=== PATIENT | male | born 1945 | race Hispanic/Latino ===

== ENCOUNTER 2016-07-27 15:33 | Inpatient (IN) | payer MEDICARE, MEDICAID ==
[2016-07-27 15:49] VITALS: BMI 19.8
[2016-07-27] MEDS ORDERED: Sodium Chloride 0.9% 1,000 ML IV STA (16:16)
[2016-07-27 16:54] LABS: URINE BILIRUBIN NEGATIVE (NEGATIVE); URINE BLOOD NEGATIVE (NEGATIVE); URINE GLUCOSE (UA) NEGATIVE (NEGATIVE); URINE KETONE NEGATIVE (NEGATIVE); URINE LEUKOCYTE ESTERASE NEGATIVE Leu/uL (NEGATIVE); URINE PROTEIN TRACE mg/dL (<30 mg/dL)
[2016-07-27 16:56] LABS: URINE APPEARANCE CLEAR (CLEAR); URINE COLOR YELLOW (YELLOW)
[2016-07-27 16:59] LABS: ADD MANUAL DIFF? NO
[2016-07-27 17:08] LABS: BASO # 0.01 K/mm3 (0.0-2.0); BASO % 0.3 % (0.0-3.0); EOS # 0.1 (0.0-0.7); EOS % 2.3 % (1.5-5.0); GRAN # 1.73 (1.4-6.5); GRAN % 56.8 % (50.0-68.0); LYMPH # 0.7 (1.2-3.4); LYMPH % 22.6 % (22.0-35.0); MEAN CELL VOLUME 88.3 fL (80.0-105.0); MEAN CORPUSCULAR HEMOGLOBIN 29.4 pg (25.0-35.0); MEAN CORPUSCULAR HGB CONC 33.3 g/dl (31.0-37.0); MONO # 0.6 (0.1-0.6); PLATELET COUNT 167 10^3/uL (120.0-450.0); RED CELL DISTRIBUTION WIDTH 15.4 % (11.5-14.5); WHITE BLOOD COUNT 3.1 10^3/ul (4.5-11.0)
[2016-07-27 17:12] LABS: ALB/GLOB RATIO 1.1 (1.1-1.8); ALKALINE PHOSPHATASE 147 U/L (38-133); ALT/SGPT 33 U/L (7-56); AMYLASE 99 U/L (35-125); AST/SGOT 37 U/L (15-59); BILIRUBIN,TOTAL 0.7 mg/dL (0.2-1.3); BLOOD UREA NITROGEN 23 mg/dL (7-21); CALCIUM 9.1 mg/dL (8.4-10.5); CARBON DIOXIDE 30 mmol/L (21-33); CHLORIDE 102 mmol/L (98-107); GFR AFRICAN-AMERICAN > 60; GLUCOSE,RANDOM 106 mg/dL (70-110); LIPASE 281 U/L (23-300); POTASSIUM 3.8 mmol/L (3.6-5.0); SODIUM 140 mmol/L (132-148); TOTAL PROTEIN 6.5 g/dL (5.8-8.3)
[2016-07-27] MEDS ORDERED: Iohexol 350 MG/100 ML VIAL ONE (17:15)
[2016-07-27 17:16] LABS: INR 1.09 (0.93-1.08); PARTIAL THROMBOPLASTIN TIME 28.7 Seconds (23.7-30.8)
--- NOTE | 2016-07-27 17:16 | ED PDOC ---
Arrival/HPI - General Chief Complaint: Altered Mental Status Time Seen by Provider: 07/27/16 15:40 Historian: Patient, Family (daughters) - History of Present Illness Narrative History of Present Illness (Text): 07/27/16 16:00 whose past medical history includes hypertension, COPD, visually impaired, and lung cancer (received 33 radiation sessions), who is brought into the emergency department for altered mental status. Patient's daughters states the patient has been altered for about 2 weeks now. They says he been calling them says stuff like "I kidnapped someone," "I killed my roommate," "my mind is telling me to cut someone throat," and "your mom is here talking to me." Daughter notes patient has fell off the bed 2 times recently while getting out of the bed. They state the patient has been complaining of right hip pain and lower abdominal pain. Patient states he has chest pain when he coughs and he has been coughing a lot recently. He also complains of shortness of breath but denies any headache, nausea, vomiting, diarrhea, lower extremity pain/swelling, fever, or any other complaints. PMD: Dr. Rossi Manager Diversity: Dr. 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 NEWLY DX JANUARY 2016) - Integumentary Hx Dermatological Disorder: Yes Other/Comment: skin discolorations b/l arms, skin tear right arm and small scratch left arm, multiple skin discolorations ble - Musculoskeletal/Rheumatological Hx Musculoskeletal Disorders: Yes Hx Falls: Yes (FELL --16) Hx Fractures: Yes (2 SMALL FX TO RIGHT PUBIC RAMUS) - Genitourinary/Gynecological Hx Reproductive Disorders: No - Psychiatric Hx Psychophysiologic Disorder: Yes Hx Emotional Abuse: No Hx Physical Abuse: No Hx Substance Use: No - Surgical History Other/Comment: left hip replaced in 1995 and 2010 - Anesthesia Hx Anesthesia: Yes Hx Anesthesia Reactions: No Hx Malignant Hyperthermia: No - Suicidal Assessment Feels Threatened In Home Enviroment: No Family/Social History - Physician Review Nursing Documentation Reviewed: Yes Family/Social History: Unknown Family HX Smoking Status: Former Smoker Hx Alcohol Use: Yes (2 BEER A WEEK) Hx Substance Use: No Allergies/Home Meds Allergies/Adverse Reactions: Allergies No Known Allergies Allergy (Verified 07/27/16 15:48) Home Medications: Home Meds Medication Instructions Recorded Confirmed Aspirin [Ecotrin] 81 mg PO DAILY 01/15/16 07/27/16 Albuterol HFA [Ventolin HFA 90 0.09 mg IH Q46H 03/14/16 07/27/16 mcg/actuation (8 g)] Alprazolam [Xanax] 0.25 mg PO DAILY PRN 07/27/16 07/27/16 Megestrol Acetate [Megace] 400 mg PO DAILY 07/27/16 07/27/16 Metoprolol Tartrate [Lopressor] 25 mg PO BID 07/27/16 07/27/16 Zolpidem [Ambien] 5 mg PO PRN PRN 07/27/16 07/27/16 Review of Systems - Review of Systems Constitutional: absent: Fevers Respiratory: SOB Cardiovascular: Chest Pain Gastrointestinal: Abdominal Pain. absent: Diarrhea, Nausea, Vomiting Genitourinary Male: absent: Dysuria Neurological: absent: Headache, Dizziness Psychiatric: Other (visual and auditory hallucination) Physical Exam Vital Signs Reviewed: Yes Vital Signs Temp Pulse Resp BP Pulse Ox 07/27/16 19:13 102 H 21 124/77 99 07/27/16 18:32 88 20 115/64 95 07/27/16 15:50 98.2 F 86 20 104/68 95 Temperature: Afebrile Blood Pressure: Normal Pulse: Regular Respiratory Rate: Normal Appearance: Positive for: Ill-Appearing, Cachectic Mental Status: Positive for: Alert and Oriented X 3, Confused (at times) - Systems Exam Head: Present: Atraumatic, Normocephalic Pupils: Present: PERRL Extroacular Muscles: Present: EOMI Conjunctiva: Present: Normal Mouth: Present: Moist Mucous Membranes Neck: Present: Normal Range of Motion Respiratory/Chest: Present: Decreased Breath Sounds (bilaterally (right great than left)). No: Respiratory Distress, Accessory Muscle Use Cardiovascular: Present: Regular Rate and Rhythm, Normal S1, S2. No: Murmurs Abdomen: Present: Tenderness (bilateral lower quadrant), Normal Bowel Sounds. No: Distention, Peritoneal Signs, Rebound, Guarding Back: Present: Normal Inspection Upper Extremity: Present: Normal Inspection. No: Cyanosis, Edema Lower Extremity: Present: Normal Inspection. No: Edema Neurological: Present: GCS=15, CN II-XII Intact, Speech Normal Skin: Present: Warm, Dry, Normal Color. No: Rashes Psychiatric: Present: Alert, Oriented x 3, Normal Insight, Normal Concentration , Other (confused at times) Medical Decision Making ED Course and Treatment: 07/27/16 16:00 Impression: A 70 year old male with change in mental status, abdominal pain, chest pain with cough and shortness of breath. Differential Diagnosis include but are not limited to: Sepsis Plan: -- EKG -- Chest/Abdomen/Pelvis CT -- Head CT -- Chest X-ray -- Pelvis X-ray -- Labs -- Urinalysis -- Pepcid and IV Fluids -- Reassess and disposition Prior Visits: Notes and results from previous visits were reviewed. The patient last presented to the emergency department on 06/25/16 for evaluation of chest pain. Progress Notes: 07/27/16 18:[address]: Creator : Ron Wong MD COMPARISON: None available. FINDINGS: HEMORRHAGE: No intracranial hemorrhage. BRAIN: No mass effect or edema. Cortical atrophy, periventricular small vessel diseaseIncidental finding(s): Cavum septum pellucidum normal variant VENTRICLES: Unremarkable. No hydrocephalus. CALVARIUM: Unremarkable. PARANASAL SINUSES: Unremarkable as visualized. No significant inflammatory changes. MASTOID AIR CELLS: Unremarkable as visualized. No inflammatory changes. OTHER FINDINGS: None. IMPRESSION: No acute intracranial abnormalities. No significant findings to account for the clinical presentation. 07/27/16 18:40 Chest/Abdomen/Pelvis CT: Creator : Ron Wong MD COMPARISON: 01/15/2016. CT thorax. Summary of findings on the comparison examination:Left hilar adenopathy producing narrowing of the lower lobe bronchus and presumed obstructive pneumonitis primarily left lower lobe. Less pronounced changes are seen in the lingula. FINDINGS: CT CHEST WITH CONTRAST: LUNGS: Improved aeration of the left lung, residual pneumonitis and decreased tumor burden centrally left lung, bronchial segments left lung that are also better aerated related to decrease in tumor burden. New line nonspecific findings likely pneumonitis affecting the right lung. No suspicious pulmonary nodules or masses in the right lung MEDIASTINUM: Unremarkable. Normal caliber aorta and pulmonary arterial trunk. No aortic dissection. Normal size heart. LYMPH NODES: Unremarkable. PLEURA: Unremarkable. No pneumothorax. No pleural fluid. BONES: Pathologic fractures involving right lateral ribs. Posttraumatic fractures are also identified representing new findings compared to the prior study. . These are new findings compared to the prior CT. Progressive osseous metastatic disease with pathologic compression fracture L2. Pathologic fractures and lytic disease involving multiple left ribs. OTHER FINDINGS: None. CT ABDOMEN AND PELVIS: LIVER: Unremarkable. No gross lesion or ductal dilatation. GALLBLADDER AND BILE DUCTS: Unremarkable. PANCREAS: Unremarkable. No gross lesion or ductal dilatation. SPLEEN: Unremarkable. ADRENALS: Progressive enlargement left adrenal gland consistent with metastatic disease. KIDNEYS AND URETERS: Unremarkable. No hydronephrosis. No solid mass. VASCULATURE: Unremarkable. No aortic aneurysm. BOWEL: Unremarkable. No obstruction. No gross mural thickening. APPENDIX: Normal appendix. PERITONEUM: Unremarkable. No free fluid. No free air. LYMPH NODES: Unremarkable. No enlarged lymph nodes. BLADDER: Unremarkable. REPRODUCTIVE: Unremarkable. BONES: No acute fractureLytic disease in the sacrum and left iliac wing. Additional smaller lytic lesions identified in the right iliac bone. Pathologic fracture, healing associated with the right ischium. Lytic disease extends to the right pubis. OTHER FINDINGS: None. IMPRESSION: 1. Interval decrease in tumor burden left lung left mediastinum/ hilum. Improved aeration left lung with residual pneumonitis. 2. Progressive left adrenal metastatic disease. 3. Widely disseminated osseous metastatic disease affecting thoracolumbar vertebral bodies, pathologic fracture L2. Multiple pathologic rib fractures identified. 4. Lytic disease affecting pelvis including iliac bones and sacrum. 07/27/16 19:32 Patient with alt ms - etiology is unclear - patient continues to have symptoms - will need additional workup from oncology, pulmonary, neuro, and psych - will admit. Discussed with Dr. Rossi. - Lab Interpretations Lab Results: 07/27/16 16:50 07/27/16 16:50 Lab Results 07/27/16 16:50: WBC 3.1 L D, RBC 4.53, Hgb 13.3 L, Hct 40.0 L, MCV 88.3, MCH 29.4, MCHC 33.3, RDW 15.4 H, Plt Count 167, MPV 10.0, Gran % 56.8, Lymph % (Auto ) 22.6, Carver % (Auto) 18.0 H, Eos % (Auto) 2.3, Baso % (Auto) 0.3, Gran # 1.73, Lymph # 0.7 L, Carver # 0.6, Eos # 0.1, Baso # 0.01, PT 11.8, INR 1.09 H, APTT 28.7, Sodium 140, Potassium 3.8, Chloride 102, Carbon Dioxide 30, Anion Gap 12, BUN 23 H, Creatinine 0.9, Est GFR ( Amer) > 60, Est GFR (Non-Af Amer) > 60, Random Glucose 106, Calcium 9.1, Total Bilirubin 0.7, AST 37, ALT 33, Alkaline Phosphatase 147 H, Lactate Dehydrogenase 1518 H, Total Creatine Kinase 67, Troponin I < 0.01, Total Protein 6.5, Albumin 3.4, Globulin 3.0, Albumin/ Globulin Ratio 1.1, Amylase 99, Lipase 281 07/27/16 16:46: Urine Color Yellow, Urine Appearance Clear, Urine pH 6.0, Ur Specific Diana >= 1.030, Urine Protein Trace H, Urine Glucose (UA) Negative, Urine Ketones Negative, Urine Blood Negative, Urine Nitrate Negative, Urine Bilirubin Negative, Urine Urobilinogen 1.0 H, Ur Leukocyte Esterase Negative, Urine RBC 0 - 2, Urine WBC 0 - 2, Ur Epithelial Cells None, Urine Bacteria Small I have reviewed the lab results: Yes - RAD Interpretation Radiology Orders: 07/27/16 16:12 Brain [HEAD W/O CONTRAST] [CT] Stat 07/27/16 16:13 CHEST,ABD,PEL W/IV CONT ONLY [CT] Stat CHEST TWO VIEWS (PA/LAT) [RAD] Stat 07/27/16 16:14 PELVIS ONE VIEW [RAD] Stat - Medication Orders Current Medication Orders: Discontinued Medications Famotidine (Pepcid) 20 mg IVP STAT STA Stop: 07/27/16 16:16 Last Admin: 07/27/16 16:50 Dose: 20 MG IVP Administration Document 07/27/16 16:50 SZA (Rec: 07/27/16 16:59 A [id number]) Charges for Administration # of IVP Administrations 1 Sodium Chloride (Sodium Chloride 0.9%) 1,000 mls @ 500 mls/hr IV .Q2H STA Stop: 07/27/16 18:15 Last Admin: 07/27/16 16:45 Dose: 500 MLS/HR eMAR Start Stop Document 07/27/16 16:45 SZA (Rec: 07/27/16 16:59 [facility] [id number]) Intravenous Solution Start Date 07/27/16 Start Time 16:45 End Date 07/27/16 End time 18:45 Total Infusion Time 120 Iohexol (Omnipaque 350 100 Ml) Confirm Administered Dose 350 mg .ROUTE .STK-MED ONE Stop: 07/27/16 17:16 - Scribe Statement The provider has reviewed the documentation as recorded by the Sarahyibhoward Coughlin Provider Scribe Attestation: All medical record entries made by the Scribe were at my direction and personally dictated by me. I have reviewed the chart and agree that the record accurately reflects my personal performance of the history, physical exam, medical decision making, and the department course for this patient. I have also personally directed, reviewed, and agree with the discharge instructions and disposition. Disposition/Present on Arrival - Present on Arrival Any Indicators Present on Arrival: No History of DVT/PE: No History of Uncontrolled Diabetes: No Urinary Catheter: No History of Decub. Ulcer: No History Surgical Site Infection Following: Orthopedic Procedures, None - Disposition Have Diagnosis and Disposition been Completed?: Yes Diagnosis: Altered mental status Disposition: HOSPITALIZED Disposition Time: 19:30 Patient Plan: Admission Condition: FAIR
[2016-07-27 17:20] LABS: URINE BACTERIA SMALL (NEG); URINE RBC 0 - 2 /hpf (0-2); URINE WBC 0 - 2 /hpf (0-6)
[2016-07-27 17:33] LABS: TROPONIN I < 0.01 ng/mL
--- NOTE | 2016-07-27 18:20 | CT ---
PROCEDURE: CT HEAD WITHOUT CONTRAST. HISTORY: alt ms; lung ca - r/o mets COMPARISON: None available. TECHNIQUE: Axial computed tomography images were obtained through the head/brain without intravenous contrast. Radiation dose: Total exam DLP = 822.62 mGy-cm. This CT exam was performed using one or more of the following dose reduction techniques: Automated exposure control, adjustment of the mA and/or kV according to patient size, and/or use of iterative reconstruction technique. FINDINGS: HEMORRHAGE: No intracranial hemorrhage. BRAIN: No mass effect or edema. Cortical atrophy, periventricular small vessel diseaseIncidental finding(s): Cavum septum pellucidum normal variant VENTRICLES: Unremarkable. No hydrocephalus. CALVARIUM: Unremarkable. PARANASAL SINUSES: Unremarkable as visualized. No significant inflammatory changes. MASTOID AIR CELLS: Unremarkable as visualized. No inflammatory changes. OTHER FINDINGS: None. IMPRESSION: No acute intracranial abnormalities. No significant findings to account for the clinical presentation.
--- NOTE | 2016-07-27 18:36 | CT ---
PROCEDURE: CT Chest, Abdomen and Pelvis with intravenous contrast HISTORY: lung CA; cp; abd pain COMPARISON: 01/15/2016. CT thorax. Summary of findings on the comparison examination:Left hilar adenopathy producing narrowing of the lower lobe bronchus and presumed obstructive pneumonitis primarily left lower lobe. Less pronounced changes are seen in the lingula. TECHNIQUE: IV dose administered: Radiation dose: Total exam DLP = mGy-cm. This CT exam was performed using one or more of the following dose reduction techniques: Automated exposure control, adjustment of the mA and/or kV according to patient size, and/or use of iterative reconstruction technique. FINDINGS: CT CHEST WITH CONTRAST: LUNGS: Improved aeration of the left lung, residual pneumonitis and decreased tumor burden centrally left lung, bronchial segments left lung that are also better aerated related to decrease in tumor burden. New line nonspecific findings likely pneumonitis affecting the right lung. No suspicious pulmonary nodules or masses in the right lung MEDIASTINUM: Unremarkable. Normal caliber aorta and pulmonary arterial trunk. No aortic dissection. Normal size heart. LYMPH NODES: Unremarkable. PLEURA: Unremarkable. No pneumothorax. No pleural fluid. BONES: Pathologic fractures involving right lateral ribs. Posttraumatic fractures are also identified representing new findings compared to the prior study. . These are new findings compared to the prior CT. Progressive osseous metastatic disease with pathologic compression fracture L2. Pathologic fractures and lytic disease involving multiple left ribs. OTHER FINDINGS: None. CT ABDOMEN AND PELVIS: LIVER: Unremarkable. No gross lesion or ductal dilatation. GALLBLADDER AND BILE DUCTS: Unremarkable. PANCREAS: Unremarkable. No gross lesion or ductal dilatation. SPLEEN: Unremarkable. ADRENALS: Progressive enlargement left adrenal gland consistent with metastatic disease. KIDNEYS AND URETERS: Unremarkable. No hydronephrosis. No solid mass. VASCULATURE: Unremarkable. No aortic aneurysm. BOWEL: Unremarkable. No obstruction. No gross mural thickening. APPENDIX: Normal appendix. PERITONEUM: Unremarkable. No free fluid. No free air. LYMPH NODES: Unremarkable. No enlarged lymph nodes. BLADDER: Unremarkable. REPRODUCTIVE: Unremarkable. BONES: No acute fractureLytic disease in the sacrum and left iliac wing. Additional smaller lytic lesions identified in the right iliac bone. Pathologic fracture, healing associated with the right ischium. Lytic disease extends to the right pubis. OTHER FINDINGS: None. IMPRESSION: 1. Interval decrease in tumor burden left lung left mediastinum/ hilum. Improved aeration left lung with residual pneumonitis. 2. Progressive left adrenal metastatic disease. 3. Widely disseminated osseous metastatic disease affecting thoracolumbar vertebral bodies, pathologic fracture L2. Multiple pathologic rib fractures identified. 4. Lytic disease affecting pelvis including iliac bones and sacrum.
[2016-07-27] MEDS ORDERED: Albuterol HFA 90 mcg/actuation (8 g) IH SCH (22:15)
[2016-07-27] MEDS ORDERED: Albuterol 0.083% Inhal Sol (2.5 mg/3 mL) UD IH PRN (22:35)
--- NOTE | 2016-07-28 08:08 | HP ---
CHIEF COMPLAINT: Altered mental status. HISTORY OF PRESENT ILLNESS: This is a 70-year-old the patient, was getting rehab in [facility], with history of COPD, visually impaired, lung cancer with metastasis, found to have altered mental status, history of shortness of breath. Chest x-ray was done in [facility]. According to them, the patient has new infiltrates then [facility] called me. We sent the patient to Emergency Room with altered mental status and shortness of breath. The patient' s daughter states that the patient has been altered for about 2 weeks. They say that he had been calling them that kidnapped someone, "killed my roommate." "My mind is telling me to cut someone's throat," and "your mom is here talking to me." It looks like he has hallucination and has delusions. Daughter noticed the patient has fallen off the bed 2 times recently while getting out of the bed. They said the patient has been complaining of right hip pain and lower abdominal pain. The patient stated that he had chest pain when he coughs and he has been coughing a lot recently, complaining of shortness of breath. Denies fever and chills. No nausea, vomiting, or diarrhea. Complains about pain in the hip and back. PAST MEDICAL HISTORY: Hypertension, COPD, visually impaired; lung cancer, received 33 radiation sessions; asthma, history of heavy smoking; history of glaucoma; history of a fall, fracture of right pubic ramus; depression. FAMILY HISTORY: Father and mother noncontributory. HABITS: History of heavy smoking. Alcohol: 2 beers one week. Substance abuse : No. ALLERGIES: The patient is not allergic with any medications. HOME MEDICATIONS: Ecotrin, Ventolin, Xanax, Megace, Lopressor, Ambien. REVIEW OF SYSTEMS: The patient looks like getting shortness of breath, coughing , mental status changes. Complaining of back pain and hip pain, and chest pain with coughing. Having visual and auditory hallucinations. No headache, no dizziness. No dysuria. No abdominal pain. Yes to having shortness of breath. PHYSICAL EXAMINATION: VITAL SIGNS: Temperature 98.6, pulse 102, respirations 21, blood pressure 124/ 77, and pulse oximetry 99. HEENT: Normocephalic, atraumatic. Eyes: PERRLA. Extraocular muscles intact. Conjunctivae pink. Eyelids unremarkable. Nose patent. NECK: Supple. No carotid bruit, JVD, or thyromegaly. CHEST: Bilaterally symmetrical. HEART: S1, S2 positive. LUNGS: Decreased breath sounds bilaterally, right upper greater than left. Using all accessory muscles. HEART: S1, S2 positive. ABDOMEN: Soft. Bowel sounds present. No organomegaly. EXTREMITIES: No edema, no cyanosis. NEUROLOGIC: The patient is awake, alert, but getting episodes of confusion. LABORATORY DATA: White blood cells 3.1, hemoglobin 13.3, hematocrit 40.0, platelets 157. Sodium 140, potassium 3.8, BUN 23, creatinine 0.9, glucose 106. ASSESSMENT AND PLAN: The patient is a 70-year-old male with leukopenia, anemia , came with altered mental status. Did a CAT scan of the head that showed no acute intracranial abnormalities. No significant findings to account for the clinical presentation. CAT scan of the abdomen and pelvis done that showed interval decrease in the tumor burden, left lung, left mediastinum, hilum; improved aeration of the left lung with residual pneumonitis; progressive left adrenal metastatic disease, widely disseminated osseous metastatic disease affecting the thoracolumbar vertebral bodies; pathological fracture of L2, multiple pathological rib fractures; degenerative disease affecting the pelvis including the iliac bones and sacrum. Discussion done with Dr. Woods. The patient has hallucinations and delusions. Psych consult called with Dr. Valerie Koo. History of hypertension, chronic obstructive pulmonary disease, visually impaired; lung cancer, received 33 radiation sessions; history of pelvic fracture, history of anemia, history of multiple falls, history of small fracture to the right pubic ramus. The patient is admitted. Psych and pulmonary consult called. Neurologist consult called also. Gastrointestinal and deep venous thrombosis prophylaxis. Repeat labs. Continue present treatment. Will follow up. Ariela Rossi MD cc: [id number] TT: 07/28/2016 07:38:00 jose e [email or web address]
--- NOTE | 2016-07-28 09:21 | RAD ---
HISTORY: Lung cancer, chest pain. COMPARISON: 06/26/2016. Two-view chest. 01/15/2016 CT thorax TECHNIQUE: Chest PA and lateral FINDINGS: LUNGS: Improved aeration of the left lung. Left upper lobe/ perihilar mass has diminished. PLEURA: No significant pleural effusion identified. No pneumothorax apparent. CARDIOVASCULAR: Cardiomegaly. No evidence of acute, significant cardiovascular disease. OSSEOUS STRUCTURES: No significant abnormalities. VISUALIZED UPPER ABDOMEN: Normal. OTHER FINDINGS: None. IMPRESSION: Interval improvement without complete resolution left perihilar mass/ infiltrate. No new/acute findings.
[2016-07-28] MEDS: Megestrol Acetate 40 mg/ml Cup PO SCH (09:31)
[2016-07-28] MEDS: Non Formulary Medication (Budesonide/Formoterol Fumarate [Symbicort 160-4.5 Mcg Inhaler] 1 IH SCH ×2 (09:35→17:05)
--- NOTE | 2016-07-28 10:42 | RAD ---
PROCEDURE: Radiographs of the pelvis. HISTORY: fall; recent pelvis fx COMPARISON: July 27, 2016. CT abdomen and pelvis. Summary of findings on the comparison examination: Lytic disease affecting pelvis including iliac bones and sacrum. FINDINGS: BONES: Pelvic Bones: Lytic disease, pathologic fracture of the ischium better appreciated on comparative CT scan. The finding is marked on the study for review. Hips: Degenerative changes right hip. Left DAMIAN identified, there is a component of protrusio acuity/chronicity uncertain JOINTS: Sacroiliac Joints: Unremarkable. Pubic Symphysis: Unremarkable. OTHER FINDINGS: None. IMPRESSION: Nondisplaced pathologic fracture right ischium.
[2016-07-28] MEDS: HYDROmorphone 0.5 mg/0.5 ml ISec IVP PRN (16:52)
--- NOTE | 2016-07-28 18:07 | CARD ---
APPROVED REPORT EKG Measurement Heart [id number] ND [id number] <Conclusion> Normal sinus rhythm Left axis deviation Abnormal ECG
[2016-07-28] MEDS: Budesonide 0.5 mg/2 ml Inhal Susp UD IH SCH (20:11)
[2016-07-28] MEDS: Arformoterol 15 mcg/2 ml Inh Sol IH SCH (20:11)
--- NOTE | 2016-07-28 20:43 | CON ---
DATE: 07/28/2016 HISTORY OF PRESENT ILLNESS: Shortly, the patient is a 70-year-old male with multiple medic al issues including hypertension, COPD, visually impaired, lung cancer, received 33 radiation session s. Brought to the Emergency Room from [facility] where he took subacute rehab for evaluation of a ltered mental status for the past 2 weeks. In the Emergency Room, patient was saying that he kidnapp ed someone and killed his roommate and his mind was telling the patient to cut someone's throat. The patient presented to be bizarre and delusional. The patient was admitted on the medical floor statu s post fall. The patient complained of right hip pain and abdominal pain as well as coughing. He al so was complaining of shortness of breath. A psych consult was called for evaluation of delusions an d hallucinations. The patient was seen and examined today. The patient presented to be confused. T he patient said that he is in [facility]. The patient reported that he sees something on the corn er of his eye. Besides that, denied hearing voices. He reported that he had difficulty to fall asle ep. The patient is a poor and unreliable historian. Speech is impaired. The patient is stuttering and difficult to express himself. This senior grant writer is not sure what this patient's baseline is. Collater al information was obtained from the nursing staff. As per nursing staff, the patient has episodes o f confusion. The patient was saying that there is his daughter. At the same time, the patient said that he has a family, as well as daughter, as well as granddaughter who is the same age as his d aughter. This senior grant writer reviewed vital signs. Vital signs seem to be stable. Temperature 98.4, pulse is 80, blo od pressure 106/72, oxygen saturation is 91. MEDICATIONS: Reviewed. The patient is on albuterol, Norvasc, Brovana, aspirin, Lipitor, Pulmicort, Pepcid, Dilaudid, Zestril, Megace, Lopressor, budesonide, Seroquel was started at the nighttime and A mbien as needed for insomnia. LABORATORIES: WBC cells 3.1, hemoglobin 13.3, hematocrit 40. Coagulation is reviewed. Chemistry re viewed. PAST PSYCHIATRIC HISTORY: The patient denied thoughts of harming himself or others. Head CT scan wa s done with no acute intracranial abnormality. No significant findings. Chest x-ray was done; inter laura improvement without complete resolution of perihilar mass infiltrate. No acute findings. Chest, abdominal, pelvis CT scan: Tumor burden left lung and left mediastinum, left lung with residual pneumonitis, progressive left adrenal metastatic disease, widely disseminated metastat ic disease affecting thoracolumbar vertebral bodies. Pathological fracture of , multiple pathol ogical rib fractures identified. Lytic disease affecting pelvis including ilium, bones and sacrum. Pelvis x-ray was reviewed. Nondisplaced pathological fracture, right ischium. MENTAL STATUS EXAMINATION: The patient appears to be alert, was joking, intermittent eye contact. T he patient has glasses and is visually impaired. Speech was stuttering, difficulty to express himsel f. Mood described as "I am fine." Affect was labile. One minute patient was making a joke, another minute patient was crying. Mood described as okay. Thought process was coherent at the moment of t he interview, but patient has episodes of confusion and disorganized thoughts. Thought content: The patient denied thoughts of harming himself, but reported to think about . The patient reported that he sees something in the Emergency Room. The patient presented to be disorganized, was saying that he kidnapped someone and killed his roommate, which is obviously not true. The patient was sayi ng that his mind is telling him to cut someone else's throat. IMPRESSION: Most likely, patient is delirious due to medical problems. There is no metastasis to hi s brain. The patient has multiple medical issues including chronic obstructive pulmonary disease, hy pertension. The patient is visually impaired. Lung cancer status post 33 radiation sessions as well as metastatic disease. PLAN: Continue current management. This senior grant writer will initiate Seroquel 12.5 mg at the nighttime to c lear delirium. Please continue treatment. We will follow up and advise accordingly. Thank you very much for letting me participate in the care of your patient. Valerie Koo MD cc: [phone] TT: 07/28/2016 20:06:16 Confirmation # [id number] Dictation # [id number] dn
--- NOTE | 2016-07-29 03:13 | PN ---
DATE: 07/29/2016 The patient is a 70-year-old male. SUBJECTIVE: The patient is seen and examined on the bedside, complaining about shortness of breath, coughing, pain in his back and chest. No fever. No chills. No headache. No nausea, vomiting, or d iarrhea. No hematuria or hematochezia. PHYSICAL EXAMINATION: VITAL SIGNS: Temperature 98.4, pulse 80, blood pressure 106/72, respiratory rate 18. HEENT: Head normocephalic, atraumatic. Eyes, PERRLA. Extraocular muscles intact. Conjunctivae pink . Eyelids unremarkable. Nose patent. Mucous membranes moist. NECK: Supple. No carotid bruit, JVD, or thyromegaly. CHEST: Bilaterally symmetrical. HEART: S1, S2 positive. LUNGS: Clear to auscultation. ABDOMEN: Soft. Bowel sounds present. No organomegaly. EXTREMITIES: No edema. No cyanosis. NEUROLOGIC: The patient is awake, alert, moving all 4 extremities. No focal deficits. MEDICATIONS: Albuterol, Ambien, Brovana, Dilaudid, Ecotrin, Lipitor, Lopressor, Lovenox, Megace, Nor vasc, Pepcid, Pulmicort, Seroquel, Zestril. LABORATORY DATA: White blood cell 3.1, hemoglobin 13.3, hematocrit 40.0, platelets 157. Sodium 140, potassium 3.8, BUN 23, creatinine 0.9. ASSESSMENT AND PLAN: The patient is a 70-year-old male with leukopenia; anemia; proteinuria; history of nondisplaced pathological fracture, right ischium; degenerative disease of the bones; lung cancer , status post chemotherapy and radiation therapy; now he is depressed. Most likely the patient is de lirious due to medical condition, due to metastasis to his brain. He has multiple medical issues, ch ronic obstructive lung disease, hypertension. The patient is visually impaired, status post 33 radia tion sessions, as well as metastatic disease. Continue present treatment. Dr. Valerie Koo star marilynn Seroquel at nighttime to clear the delirium. Discussion done with the patient and nursing staff. The patient has history of hypertension, history of heavy smoking, glaucoma, fall, fracture of the right pubic ramus. Neurology consult called with Dr. Rodriguez, pulmonary with Dr. Mauricio. Dr. Valerie dean, the psychiatrist, saw the patient. Gastrointestinal and deep venous thrombosis prophylaxi s. We will follow up. Ariela Rossi MD cc: [id number] TT: 07/29/2016 03:12:19 Confirmation # [id number] Dictation # [id number] tn
--- NOTE | 2016-07-29 03:13 | CON ---
DATE: 07/28/2016 REFERRING PHYSICIAN: Dr. Rossi. REASON FOR CONSULT: Chronic obstructive lung disease, unresectable lung cancer. HISTORY OF PRESENT ILLNESS: This is a 70-year-old gentleman with a past medical history significant for chronic obstructive lung disease, hypertension, unresectable lung cancer, been on radiation and c hemotherapy. He was at a subacute facility, brought in to Emergency Room because of change in mental status, hallucinations and delusions. He was seen by a psychiatrist, been on opiates for pain manag ement. At the time I saw him, he was much more awake and alert. He remembered that was not feeling well and was hallucinating and having delusions. He was hearing voices to do something. Presently f eels much better. Has mild cough and shortness of breath. No nausea, no vomiting, diarrhea. No leg pain or leg swelling. PAST MEDICAL HISTORY: Chronic obstructive lung disease, unresectable lung cancer, hypertension, lega lly blind, history of fall with hip fracture, depression. SOCIAL HISTORY: Positive history of smoking, also history of alcohol use. FAMILY HISTORY: No significant cardiopulmonary disease reported. ALLERGIES: None known. MEDICATIONS: He is on albuterol-Atrovent nebulizer q. 8 hours p.r.n., Ambien 5 mg at bedtime p.r.n., Brovana 15 mcg inhaled twice a day, Dilaudid 0.25 mg q. 6 hours p.r.n., Ecotrin 81 mg daily, Lipitor 10 mg daily, metoprolol tartrate 25 mg twice a day, Megace 400 mg daily, Norvasc 10 mg daily, Pepcid 40 mg daily, Pulmicort inhaled twice a day, Seroquel 12.5 mg at bedtime and Zestril 20 mg daily. REVIEW OF SYSTEMS: At present, there is no headache, no rhinitis. Has mild cough and shortness of b reath. No chest pain, no nausea, no vomiting, diarrhea. No leg pain or leg swelling. Neurologicall y pleasant, awake, alert. LABORATORY DATA: Shows hemoglobin .3, hematocrit 40, WBC 3.1, platelet is 167. INR 1.09, PTT 2 9. Sodium 140, potassium 3.8, chloride 100, bicarbonate 30, BUN 23, creatinine 0.9, glucose 106, [place]org[place] cium 9.1, total bilirubin 0.7, AST 57, ALT 33, alkaline phosphatase is 127, LDH is 1518. Troponin le ss than 0.01. Albumin 3.4, globulin 3.0. Amylase 19 and lipase is 281. IMPRESSION AND PLAN: Chronic obstructive lung disease, unresectable lung cancer, legally blind, hype rtension, delirious, seen by psychiatry, presently feels better. Pulmonary point of view, continue b ronchodilator, keep head elevated at 45 degrees. Gastric prophylaxis. Deep venous thrombosis prophy laxis. Fall precaution. Thank you and will follow with you. Fabiola Mauricio MD cc: [id number] TT: 07/29/2016 03:13:24 Confirmation # [id number] Dictation # [id number] mn
[2016-07-29] MEDS: Budesonide 0.5 mg/2 ml Inhal Susp UD IH SCH ×2 (08:21→19:45)
[2016-07-29] MEDS: Arformoterol 15 mcg/2 ml Inh Sol IH SCH ×2 (08:21→19:45)
--- NOTE | 2016-07-29 09:36 | CP.PCM.CON ---
History of Present Illness - History of Present Illness History of Present Illness: Palliative consult requested by Dr Law Pendleton Reason: Goals of care/hospice discussion 70 year old male admitted with altered mental status, hallucinations. He complains of generalized pain, most often in right hip. CT of the head negative for new/ acute findings. CT of chest abdomen affirm left mediastinum /hilar mass , left lung pneumonitis, left adrenal metastatic disease, widely disseminated osseous metastatic disease, pathological fracture of L2 and ribs. Labs; leukopenia, mild anemia, Alk. Phos 147, LDH 1518. 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 Social History:Former heavy smoker,occasional alcohol, no drug use.Resident of [facility]. Advance Care Planning: He has an Advance Directive, a copy is on the chart. Review of Systems: Patient is confused, limited review. Currently complaining of neck pain Past Patient History - Infectious Disease Hx of Infectious Diseases: None - Past Social History Smoking Status: Former Smoker - CARDIAC Hx Hypertension: Yes - PULMONARY Hx Chronic Obstructive Pulmonary Disease (COPD): Yes - NEUROLOGICAL Hx Neurological Disorder: No - HEENT Hx Blind: Yes - HEMATOLOGICAL/ONCOLOGICAL Hx Blood Disorders: Yes Hx Cancer: Yes (lung ON RADIATION THERAPHY. NEWLY DX JANUARY 2016) - INTEGUMENTARY Hx Dermatological Problems: Yes Other/Comment: skin discolorations b/l arms, skin tear right arm and small scratch left arm, multiple skin discolorations ble - MUSCULOSKELETAL/RHEUMATOLOGICAL Hx Falls: Yes - GENITOURINARY/GYNECOLOGICAL Hx Reproductive Disorders: No - PSYCHIATRIC Hx Psychophysiologic Disorder: Yes Hx Emotional Abuse: No Hx Physical Abuse: No Hx Substance Use: No - SURGICAL HISTORY Other/Comment: left hip replaced in 1995 and 2010 - ANESTHESIA Hx Anesthesia: Yes Hx Anesthesia Reactions: No Hx Malignant Hyperthermia: No Meds Allergies/Adverse Reactions: Allergies Allergy/AdvReac Type Severity Reaction Status Date / Time No Known Allergies Allergy Verified 07/27/16 15:48 - Medications Medications: Current Medications Albuterol Sulfate (Albuterol 0.083% Inhal Yoon (2.5 Mg/3 Ml) Ud) 2.5 mg IH TIDRESP PRN PRN Reason: Shortness of Breath Amlodipine Besylate (Norvasc) 10 mg PO DAILY [facility] Last Admin: 07/28/16 09:30 Dose: 10 mg Arformoterol Tartrate (Brovana) 15 mcg IH [id number] [facility] Last Admin: 07/29/16 08:21 Dose: 15 mcg Aspirin (Ecotrin) 81 mg PO DAILY [facility] Last Admin: 07/28/16 09:31 Dose: 81 mg Atorvastatin Calcium (Lipitor) 10 mg PO DIN [facility] Last Admin: 07/28/16 16:53 Dose: 10 mg Budesonide (Pulmicort Respules) 0.5 mg IH [id number] [facility] Last Admin: 07/29/16 08:21 Dose: 0.5 mg Enoxaparin Sodium (Lovenox) 30 mg SC DAILY [facility] PRN Reason: Protocol Famotidine (Pepcid) 40 mg PO HS [facility] Last Admin: 07/28/16 21:26 Dose: 40 mg Hydromorphone HCl (Dilaudid) 0.25 mg IVP Q6H PRN PRN Reason: Pain, moderate (4-7) Last Admin: 07/28/16 16:52 Dose: 0.25 mg Lisinopril (Zestril) 20 mg PO DAILY [facility] Last Admin: 07/28/16 09:28 Dose: 20 mg Megestrol Acetate (Megace) 400 mg PO DAILY [facility] Last Admin: 07/28/16 09:31 Dose: 400 mg Metoprolol Tartrate (Lopressor) 25 mg PO BID [facility] Last Admin: 07/28/16 17:00 Dose: 25 mg Non-Formulary Medication (Budesonide/Formoterol Fumarate [Symbicort 160-4.5 Mcg Inhaler]) 1 aer IH BID [facility] Last Admin: 07/28/16 17:05 Dose: Not Given Quetiapine Fumarate (Seroquel) 12.5 mg PO [facility] PRN Reason: Protocol Last Admin: 07/28/16 21:26 Dose: 12.5 mg Zolpidem Tartrate (Ambien) 5 mg PO HS PRN; Protocol PRN Reason: Sleep Physical Exam - Constitutional Appears: Cachectic, Chronically Ill - Head Exam Head Exam: NORMAL INSPECTION - Eye Exam Eye Exam: PERRL Additional comments: slcera opaque - ENT Exam ENT Exam: Mucous Membranes Moist, Normal Oropharynx - Neck Exam Neck exam: Positive for: Normal Inspection - Respiratory Exam Respiratory Exam: Decreased Breath Sounds Additional comments: non productive cough - Cardiovascular Exam Cardiovascular Exam: REGULAR RHYTHM, +S1, +S2 - GI/Abdominal Exam GI & Abdominal Exam: Normal Bowel Sounds, Soft, Tenderness - Extremities Exam Extremities exam: Positive for: normal capillary refill - Back Exam Back exam: NORMAL INSPECTION, vertebral tenderness - Neurological Exam Neurological exam: Altered - Skin Skin Exam: Dry, Pallor Additional comments: numerous skin teas of all extremities - Additional Findings Additional findings: Palliative performance scale rating 30 % Results - Vital Signs Recent Vital Signs: Last Vital Signs Temp 98.4 F 07/28/16 16:00 Pulse 80 07/28/16 17:00 Resp 18 07/28/16 16:00 BP 106/72 07/28/16 17:00 Pulse Ox 91 L 07/28/16 16:00 - Labs Result Diagrams: 07/27/16 16:50 07/27/16 16:50 Assessment & Plan - Assessment and Plan (Free Text) Assessment: 70 year old male, resident of [facility] admitted with delirium, generalized pain, non productive cough. The patient is confused. Complains of generalized pain when moved or repositioned. Patient's daughter Ebonie and end ex at bedside. Lengthy discussion with family regarding patients medical condition and over all prognosis. Family aware that patient has widespread metastatic disease. Family considering goals of care and are focusing on comfort measures. They state they are no longer interested in having MRI of the brain done. They expressed that thy they do not want to pursue any palliative treatments. They are interested in hospice care. Hospice care explained in detail. Questions answered. Family agreeable to meeting with a business liaison manager. We also spoke about changing patients status to DNR/DNI. POA, Ebonie and patient 's in agreement. They feel that it is futile to attempt CPR and intubation, knowing that patient has very advanced lung cancer. POLST completed, a copy is on the chart. Plan: As discussed with Dr Law Rossi who is agreeable to plan, POLST: DNR/DNI Hospice evaluation. Will assist family with end of life care planning - Date & Time Date: 07/29/16 Time: 11:30
[2016-07-29] MEDS: Enoxaparin 30 mg Syringe SC SCH (09:56)
[2016-07-29] MEDS: Megestrol Acetate 40 mg/ml Cup PO SCH (09:57)
[2016-07-29] MEDS: Non Formulary Medication (Budesonide/Formoterol Fumarate [Symbicort 160-4.5 Mcg Inhaler] 1 IH SCH (09:58)
--- NOTE | 2016-07-29 10:41 | CP.PCM.CON ---
History of Present Illness - History of Present Illness History of Present Illness: Mr Wolfe is a 70 year old gentleman who is known to our department. He initially only received definitive radiation therapy for his lung cancer which he completed on April 15, 2016. He was frail, and also due to insurance related issues, he never started any systemic therapy. Since he completed radiation therapy, we saw him briefly in follow up, and had ordered a restaging PET as well as MRI of the brain, however because he was in a rehab center, the rehab center stated that a PET or MRI could not be done during his time there. Despite speaking extensively with the family about this issue, they did not make any progress regarding placement. We were informed recently by the family , they were attempting to transfer him to the hospital due to worsening mental issues that he was having. He was admitted on July 27, 2016, and was informed by his family of his admission. Since being admitted to [facility], he had a CT of the chest, abdomen and pelvis on July 27, 2016 which revealed improved aeration of the left lung with decrease in tumor burden in the left lung. He had progression of his left adrenal metastases as well as widely disseminated osseous metastases in the bone including a pathologic fracture at L2 as well as lytic lesions in the right iliac bone and lytic lesion extending to right pubic. A CT of the head without contrast does not show any obvious masses or edema. We were informed by his family today of his admission to [facility]. Review of Systems - Review of Systems Systems not reviewed;Unavailable: Altered Mental Status - Constitutional Constitutional: Weight Loss - Respiratory Respiratory: Dyspnea - Musculoskeletal Additional comments: right hip and groin pain - Neurological Neurological: Confusion Past Patient History - Infectious Disease Hx of Infectious Diseases: None - Past Social History Smoking Status: Former Smoker - CARDIAC Hx Hypertension: Yes - PULMONARY Hx Chronic Obstructive Pulmonary Disease (COPD): Yes - NEUROLOGICAL Hx Neurological Disorder: No - HEENT Hx Blind: Yes - HEMATOLOGICAL/ONCOLOGICAL Hx Blood Disorders: Yes Hx Cancer: Yes (lung ON RADIATION THERAPHY. NEWLY DX JANUARY 2016) - INTEGUMENTARY Hx Dermatological Problems: Yes Other/Comment: skin discolorations b/l arms, skin tear right arm and small scratch left arm, multiple skin discolorations ble - MUSCULOSKELETAL/RHEUMATOLOGICAL Hx Falls: Yes - GENITOURINARY/GYNECOLOGICAL Hx Reproductive Disorders: No - PSYCHIATRIC Hx Psychophysiologic Disorder: Yes Hx Emotional Abuse: No Hx Physical Abuse: No Hx Substance Use: No - SURGICAL HISTORY Other/Comment: left hip replaced in 1995 and 2010 - ANESTHESIA Hx Anesthesia: Yes Hx Anesthesia Reactions: No Hx Malignant Hyperthermia: No Meds Allergies/Adverse Reactions: Allergies Allergy/AdvReac Type Severity Reaction Status Date / Time No Known Allergies Allergy Verified 07/27/16 15:48 - Medications Medications: Current Medications Albuterol Sulfate (Albuterol 0.083% Inhal Yoon (2.5 Mg/3 Ml) Ud) 2.5 mg IH TIDRESP PRN PRN Reason: Shortness of Breath Amlodipine Besylate (Norvasc) 10 mg PO DAILY [facility] Last Admin: 07/29/16 09:57 Dose: 10 mg Arformoterol Tartrate (Brovana) 15 mcg IH [id number] [facility] Last Admin: 07/29/16 08:21 Dose: 15 mcg Aspirin (Ecotrin) 81 mg PO DAILY [facility] Last Admin: 07/29/16 09:57 Dose: 81 mg Atorvastatin Calcium (Lipitor) 10 mg PO DIN [facility] Last Admin: 07/28/16 16:53 Dose: 10 mg Budesonide (Pulmicort Respules) 0.5 mg IH [id number] [facility] Last Admin: 07/29/16 08:21 Dose: 0.5 mg Enoxaparin Sodium (Lovenox) 30 mg SC DAILY [facility] PRN Reason: Protocol Last Admin: 07/29/16 09:56 Dose: 30 mg Famotidine (Pepcid) 40 mg PO HS [facility] Last Admin: 07/28/16 21:26 Dose: 40 mg Hydromorphone HCl (Dilaudid) 0.25 mg IVP Q6H PRN PRN Reason: Pain, moderate (4-7) Last Admin: 07/28/16 16:52 Dose: 0.25 mg Lisinopril (Zestril) 20 mg PO DAILY [facility] Last Admin: 07/29/16 09:57 Dose: 20 mg Megestrol Acetate (Megace) 400 mg PO DAILY [facility] Last Admin: 07/29/16 09:57 Dose: 400 mg Metoprolol Tartrate (Lopressor) 25 mg PO BID [facility] Last Admin: 07/29/16 09:57 Dose: 25 mg Non-Formulary Medication (Budesonide/Formoterol Fumarate [Symbicort 160-4.5 Mcg Inhaler]) 1 aer IH BID [facility] Last Admin: 07/29/16 09:58 Dose: Not Given Quetiapine Fumarate (Seroquel) 12.5 mg PO HS [facility] PRN Reason: Protocol Last Admin: 07/28/16 21:26 Dose: 12.5 mg Zolpidem Tartrate (Ambien) 5 mg PO HS PRN; Protocol PRN Reason: Sleep Physical Exam - Constitutional Appears: Cachectic, Chronically Ill - Respiratory Exam Respiratory Exam: Clear to Auscultation Bilateral - Cardiovascular Exam Cardiovascular Exam: REGULAR RHYTHM - GI/Abdominal Exam GI & Abdominal Exam: Normal Bowel Sounds - Back Exam Additional comments: tenderness in the right hip and groin - Neurological Exam Neurological exam: Altered Additional comments: oriented to person and place Results - Vital Signs Recent Vital Signs: Last Vital Signs Temp 98.2 F 07/29/16 06:00 Pulse 87 07/29/16 06:00 Resp 22 07/29/16 06:00 BP 112/72 07/29/16 06:00 Pulse Ox 93 L 07/29/16 06:00 - Labs Result Diagrams: 07/27/16 16:50 07/27/16 16:50 Assessment & Plan - Assessment and Plan (Free Text) Assessment: Mr Wolfe is a 70 year old gentleman who is known to our department. He initially only received definitive radiation therapy for his lung cancer which he completed on April 15, 2016. He has progressively worsened over time, and now has widely metastatic disease. He has mental status changes. We discussed his case with Dr Marquez. We would recommend a MRI of the brain with contrast, however he is claustrophobic. Initially, we could not get the MRI here at [facility], and had to get an open MRI at [facility]. As such, we will order a CT of the head without contrast to ascertain if there are small brain lesions that could be contributing to his neurologic changes. Before we talk to the family about any possibility of palliative radiation for his pain, we would like to have a comprehensive understanding of his metastatic disease since he is at high risk of intracranial metastases.
[2016-07-29] MEDS ORDERED: Iohexol 300 100 ML IJ ONE (11:20)
--- NOTE | 2016-07-29 12:25 | CT ---
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 TECHNIQUE: Axial computed tomography images were obtained through the head/brain with intravenous contrast. Contrast dose: 100 cc of Omni 350 Radiation dose: Total exam DLP = 869 mGy-cm. This CT exam was performed using one or more of the following dose reduction techniques: Automated exposure control, adjustment of the mA and/or kV according to patient size, and/or use of iterative reconstruction technique. FINDINGS: HEMORRHAGE: No intracranial hemorrhage. BRAIN: No mass, mass effect or edema. No abnormal intracranial enhancement. No atrophy or chronic microvascular ischemic changes. VENTRICLES: Unremarkable. No hydrocephalus. CALVARIUM: Unremarkable. PARANASAL SINUSES: Unremarkable as visualized. No significant inflammatory changes. MASTOID AIR CELLS: Unremarkable as visualized. No mastoid effusion. OTHER FINDINGS: None. IMPRESSION: No evidence of metastatic disease
[2016-07-29 13:15] LABS: HEMATOCRIT 40.7 % (42.0-52.0); MEAN CELL VOLUME 86.4 fL (80.0-105.0); MEAN CORPUSCULAR HEMOGLOBIN 28.7 pg (25.0-35.0); MEAN CORPUSCULAR HGB CONC 33.2 g/dl (31.0-37.0); MEAN PLATELET VOLUME 9.8 fl (7.0-11.0)
[2016-07-29 13:17] LABS: WHITE BLOOD COUNT 2.7 10^3/ul (4.5-11.0)
[2016-07-29 13:24] LABS: ALKALINE PHOSPHATASE 154 U/L (38-133); ALT/SGPT 33 U/L (7-56); AST/SGOT 34 U/L (15-59); BILIRUBIN,TOTAL 0.5 mg/dL (0.2-1.3); BLOOD UREA NITROGEN 16 mg/dL (7-21); CARBON DIOXIDE 27 mmol/L (21-33); CHLORIDE 100 mmol/L (98-107); GFR AFRICAN-AMERICAN > 60; GLUCOSE,RANDOM 116 mg/dL (70-110); SODIUM 136 mmol/L (132-148); TOTAL PROTEIN 6.2 g/dL (5.8-8.3)
--- NOTE | 2016-07-29 15:13 | PN ---
DATE: 07/29/2016 Shortly, the patient is a 70-year-old male with multiple medical issues, lung cancer with m etastasis. Overall prognosis is very poor. The patient was admitted for altered mental status and h allucinations. Psych consult was called for the same reason. The patient was seen initially yesterd ay. The patient presented to be confused. This advertising copy writer started 12.5 mg of Seroquel. This advertising copy writer is following up the patient today. The patient appears to be groggy, mumbling something, but he said th at he feels okay. The patient also said "I need to stop hanging with people of my age" which is not related to context of the conversation which gives this advertising copy writer impression that patient is still in de lirium stage. VITAL SIGNS: This advertising copy writer reviewed vital signs. Temperature 98.2, pulse is 87, blood pressure 112/71 , respiration 22, oxygen saturation is 93. MEDICATIONS: Reviewed. Ambien as needed 5 mg, Seroquel 25 mg will be increased today. The patient is on Dilaudid, fentanyl, Pepcid, Norvasc, Brovana, aspirin, Lipitor, Pulmicort, Lovenox. LABORATORY DATA: Reviewed. Most recent was from today, WBC cells 2.7, hemoglobin 13.5, hematocrit o f 40.7. Coagulation reviewed. Chemistry reviewed. Urinalysis reviewed. Reports reviewed. The patient was seen by palliative care, Miss Yin Vin. His case was discu ssed with Dr. Rossi yesterday in detail. MENTAL STATUS EXAMINATION: As this advertising copy writer described above, patient appears to be confused, sleepy, w as talking to this advertising copy writer with eyes closed. Majority of the statements were not related to the quest ions being asked. The patient reported to feel good. Affect was flat. Thought process is disorgani zed, confused. The patient denied thoughts of harming himself or others. The patient is obviously p sychotic which could be related to delirium stage. Insight and judgment limited. Impulses are well controlled. IMPRESSION: The patient is in acute delirium which is related to the medical issues including lung c ancer with multiple metastases, widely dissimilated metastatic disease. Please see medical team note s for more detailed information. PLAN: Continue current management for psychosis and for good night's sleep, the patient could have S eroquel 25 mg at the nighttime. The patient now is DNR and DNI. Continue pain medication, comfort m easures as well as anxiolytics in case of anxiety. There is nothing much this advertising copy writer could offer in order to help the patient. Please reconsult as needed. Thank you very much for letting me participate in care of your patient. This advertising copy writer will sign off. Valerie Koo MD cc: [id number] TT: 07/29/2016 15:12:38 Confirmation # [id number] Dictation # [id number] tn
--- NOTE | 2016-07-29 17:07 | CON ---
DATE: 07/29/2016 The patient is currently in room 360. REASON FOR CONSULTATION: This patient is well known to us, has a diagnosis of small cell lung carcin symone who has received just definitive radiation to the lung, could not get chemotherapy because of jose ious comorbid issues. Was supposed to have a PET scan set up as an outpatient, ended up being readmi tted to the hospital with a fracture of the pubis after a fall, had at lengthy stay in the rehab and was too frail to get any other treatments and is now again readmitted to [facility]. Sin ce he completed the radiation therapy, we had ordered a restaging PET as well as an MRI; however, bec ause he was in the rehabilitation center, these tests could not be done. It is unclear if the patien missy was transferred to the hospital due to worsening mental issues that he was having in the rehabilita tion. He was admitted to [facility] on 07/27/2016. Since admission to the hospital, a CAT scan of the chest, abdomen and pelvis, which showed improved aeration of the lung where he had the r adiation with decreased tumor burden; however, was noted to have progression of his adrenal metastasi s as well as now widely disseminated osseous metastases including the bone, including pathologic frac ture of L2, lytic lesion in the right iliac wing, lytic lesion extending into the right pubis. CAT s can of the head without contrast did not show any masses and since then he had a CAT scan of the head with contrast, which appears to show any metastatic disease. REVIEW OF SYSTEMS: The patient has altered mental status, so detailed information could not be glean ed from the chart. The patient has had progressive weight loss. He is short of breath. ____ short of breath. The patient has skin discoloration of both arms with skin tear, right arm, small scratch left arm with multiple skin discolorations in both lower extremities. PAST MEDICAL HISTORY: Significant for no reactions to anesthesia. No history of malignant hyperther hilton. MEDICATIONS: Reviewed. He is on albuterol 0.83% solution, 2.5 mg ____ t.i.d., amlodipine 10 mg p.o. daily, Brovana 15 mcg inhaled q. 12 hours, aspirin 81 mg daily, Lipitor 10 mg p.o. daily, ____ Pulmi bryn 0.5 mg inhaled q. 12 hours, Lovenox 30 mg subQ daily, Pepcid 40 mg p.o. daily, Dilaudid 0.25 mg IV q. 6 hours p.r.n., lisinopril 20 mg p.o. daily, Megace 400 mg p.o. daily, Lopressor 25 mg b.i.d., Seroquel 12.5 mg p.o. at bedtime, Ambien 5 mg p.o. at bedtime p.r.n. for sleep. PHYSICAL EXAMINATION: EXTREMITIES: The patient looks cachectic, chronically ill. Temporal muscle wasting noted. HEENT: Head is normocephalic, atraumatic. The patient is visually impaired. No oropharyngeal lesio ns are noted on examination of the oropharynx. NECK: Supple. There is no adenopathy. No jugular venous distention noted. LUNGS: Relatively clear to percussion and auscultation. HEART: Reveals S1 and S2 normal. No gallop or murmur is heard. BACK: Reveals tenderness to the right hip and groin. ABDOMEN: Soft, nontender. Bowel sounds are present. There is no rebound, rigidity or guarding. EXTREMITIES: Reveals no cyanosis, clubbing or edema. NEUROLOGIC: Higher functions are normal. No focal deficits are noted. VITAL SIGNS: Today revealed a T-max of 98.4, pulse 87 ____ respirations 22, blood pressure is 112/72 , pulse ox is 93% on room air. LABORATORY DATA: Reviewed. White count is 3.1, hemoglobin 13.3, hematocrit 40, platelet count 167,0 00. Sodium is 140, K is 3.8, chloride is 102, CO2 is 30. BUN is 23 with a creatinine of 0.9. Blood sugar of 106. 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 Confusion, etiology of which is unclear. Could be paraneoplas tic, could be metastatic which is why we requested a CT with contrast. The patient cannot go for an MRI because he is claustrophobic. A long talk with ____the sales account coordinator. My feeling is that at this point in time with the patient having extensive small cell lung carcinoma, in the background of this, patient is also having progressive confusion, disorientation. It might be prudent to just k eep him comfortable without making any active intervention. As far as the symptoms the patient is caputo ving, could be related to paraneoplastic phenomena that could account for the confusion and progressi ve neurologic deterioration. Will talk to the family and make appropriate recommendations as well. Gracie Marquez MD cc: [id number] TT: 07/29/2016 17:07:10 Confirmation # [id number] Dictation # [id number] rn
--- NOTE | 2016-07-29 17:17 | PN ---
DATE: 07/29/2016 SUBJECTIVE: The patient was seen and examined on the bedside. The patient is confused, complaining of generalized pain when moved or repositioned. No fever , no chills, no nausea, vomiting, or diarrhea. No hematuria or hematochezia. No headache, no dizziness. No nausea, vomiting, or diarrhea. PHYSICAL EXAMINATION: VITAL SIGNS: Temperature 98.2, pulse 57, blood pressure 112/72, respiratory rate 20. HEENT: Head normocephalic, atraumatic. Eyes, PERRLA. Extraocular muscles intact. Conjunctivae pink. Eyelids unremarkable. Nose patent. NECK: Supple. No carotid bruit, JVD or thyromegaly. CHEST: Bilaterally symmetrical. HEART: S1, S2 positive. LUNGS: Clear to auscultation. ABDOMEN: Soft. Bowel sounds present. No organomegaly. EXTREMITIES: No edema, no cyanosis. NEUROLOGIC: The patient is awake, alert and moving all 4 extremities. No focal deficits. MEDICATIONS: Albuterol, Ambien, Brovana, Symbicort, Dilaudid, Duragesic patch added today for pain, Ecotrin, Lipitor, metoprolol, Lovenox, megestrol, amlodipine, Pepcid, Pulmicort, Seroquel, lisinopril. LABORATORY DATA: White blood cells 2.7, hemoglobin 13.5, hematocrit 40.7, platelets 172. Sodium 136, potassium 4.0, BUN 15, creatinine 0.8, glucose 116. ASSESSMENT AND PLAN: The patient is a 70-year-old male with leukopenia, anemia , hyperglycemia, proteinuria. Went for CAT scan of the head, reviewed by me. Because the patient was in constant pain, we added a fentanyl patch, 20 mcg transdermal patch. Continue Dilaudid 0.25 mg IV for breakthrough pain. The patient was seen by Annamaria Banuelos. The patient had altered mental status with hallucination, generalized body pain, history of left lung pneumonitis, left adrenal metastatic disease, widely disseminated osseous metastatic disease , pathological fracture of L2 and a couple of ribs, leukopenia, chronic obstructive pulmonary disease, hypertension, visually impaired, glaucoma, macular degeneration, deconditioning, fracture of pubic ramus, left hip replacement, frequent falls, history of heavy smoking. Annamaria Banuelos talked to patient's daughter, Ebonie, and his ex-. Medical condition was discussed and overall prognosis was discussed. Family is interested to make the patient hospice, DNR and DNI. We will continue comfort care. Gastrointestinal and deep venous thrombosis prophylaxis. Repeat labs. We will follow up. Ariela Rossi MD cc: [id number] TT: 07/29/2016 17:17:14 Confirmation # [id number] Dictation # [id number] berny DOMINGUEZ
--- NOTE | 2016-07-29 19:18 | CON ---
DATE: 07/29/2016 CHIEF COMPLAINT: Altered mental status, confusion. HISTORY OF PRESENT ILLNESS: This is a 70-year-old man with documented small cell carcinoma of the jason ng, now extensive metastasis. He has adrenal metastasis and disseminated to osseous metastatic with pathological L2 lytic lesion in the right iliac wing and lesion extending into the right pubis, who p resents with altered mental status, was having hallucinations and generalized weakness; therefore was consulted. Currently, he is still mildly confused. Currently his electrolytes are getting stabiliz ed. Palliative care has seen the patient and recommends comfort care. He is on Dilaudid, fentanyl f or comfort, for pain control. He is on aspirin and statin for stroke prevention. His CT head showed no acute intracranial abnormalities, no evidence of metastatic disease. Oncology is on board. REVIEW OF SYSTEMS: A 14-point review of systems is negative except for the HPI. ALLERGIES: No known drug allergies. PAST MEDICAL HISTORY: History of leukopenia, anemia, hyperglycemia, history of chronic obstructive p ulmonary disease, hypertension, macular degeneration, deconditioned, fracture of the left hip r eplacement, history of heavy smoking, history of small cell carcinoma of the lung with adrenal mass a nd disseminated osseous metastatic disease with pathological fracture of L2 and a couple of his ribs. MEDICATIONS: Reviewed via nurse's reconciliation sheet. SOCIAL HISTORY: Former smoker. No illicit drug use or ETOH abuse. ALLERGIES: No known drug allergies. FAMILY HISTORY: Noncontributory. PHYSICAL EXAMINATION: VITAL SIGNS: Temperature 98.2, pulse rate 87, blood pressure 112/72, respiratory rate 22, oxygen sat uration 93% on room air. GENERAL: The patient is lying in bed in no acute distress. HEENT: Atraumatic, normocephalic. PERRLA. Extraocular muscles intact. NECK: Supple, no JVD, no adenopathy noted. LUNGS: Clear to auscultation. No adventitious sounds. HEART: S1, S2, normal rate and rhythm. No murmurs, rubs, or gallops. ABDOMEN: Soft, nontender, nondistended. Bowel sounds are present. EXTREMITIES: No clubbing, no cyanosis. Peripheral pulses 2+ felt bilaterally. BACK: Reveals tenderness to the right hip and groin. NEUROLOGIC: The patient is alert, oriented to person and place. Recall after 5 minutes is 0/3. Poo r attention span, slow thought process. Cranial nerves II through XII are intact. MOTOR: Is very cachectic looking, moves all extremities. SENSORY: Decreased light touch and pinprick up to the calves bilaterally, decreased vibration of the toes. DTRs are 1+ and absent at the ankles. COORDINATION AND GAIT: Deferred for now. LABORATORY DATA: WBC 2.7, hemoglobin of 13.5, hematocrit 40.7, random glucose of 172. Sodium is 136 , potassium 4, chloride 100, carbon dioxide 27, BUN of 16, creatinine 0.8. Random glucose of 116. 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 At this time, his altered mental status likely is secondary to deliriu m due to his underlying medical conditions. There is an aspect that this could be a component of a p araneoplastic disease, but doing further workup and acute management and acute intervention might be very prudent and I feel like we should keep him comfortable. At this time, recommend just mild physi georgiana therapy, keep him comfortable with the current doses of opiates and continue with oncology follow up. No further neurological aggressive intervention is required, and maintain his electrolytes and k eep him hydrated. Thank you for this consult. No further neurological workup needed at this time. Chris Rodriguez MD cc: [id number] TT: 07/29/2016 19:17:39 Confirmation # [id number] Dictation # [id number] berny
--- NOTE | 2016-07-29 21:27 | PN ---
DATE: 07/29/2016 REFERRING PHYSICIAN: Dr. Rossi. SUBJECTIVE: He is lying in the bed, head at 45 degrees, sleepy, arousable, mild cough. No shortness of breath, no chest pain, no nausea, no vomiting, diarrhea. No leg pain or leg swelling. OBJECTIVE: GENERAL: No acute distress. VITAL SIGNS: Temperature is 98, heart rate is 87, respiratory rate is 20, blood pressure 112/72, pul se ox 93% on room air. HEENT: Moist mucous membrane. No ulcer or oral thrush noted. NECK: Supple. No JVD. LUNGS: Has a fair airflow with few rhonchi. HEART: S1, S2. ABDOMEN: Soft, nontender. No organomegaly. EXTREMITIES: There is no edema. NEUROLOGIC: Sleepy, arousable, follows simple command. MEDICATIONS: He is on albuterol-Atrovent nebulizer q. 8 hours p.r.n., Ambien 5 mg at bedtime p.r.n. , Brovana 15 mcg inhaled twice a day, Dilaudid 0.25 mg IV q. 6 hours p.r.n., Duragesic patch q. 72 ho urs, Ecotrin 81 mg daily, Lipitor 10 mg daily, metoprolol tartrate 25 mg twice a day, Lovenox 30 mg s ubQ daily, Megace 400 mg daily, Norvasc 10 mg daily, Pepcid 40 mg daily, Pulmicort inhaled twice a da y, Seroquel 25 mg at bedtime and Zestril 20 mg daily. LABORATORY DATA: Shows hemoglobin 13.5, hematocrit 40.7, WBC 2.7, platelet is 172. Sodium 136, pota ssium 4.0, chloride 100, bicarbonate 27, BUN 16, creatinine 0.8, glucose 116, calcium 9.0, AST 34, AL T 33, alkaline phosphatase is 154, albumin is 3.2. CAT scan of the head was done today, which shows no infiltrate or effusion. IMPRESSION AND PLAN: Chronic obstructive lung disease, unresectable lung cancer, legally blind, hype rtension, admitted with delusion was delirious. Pulmonary Point Of View: It is okay. Continue p.o. and inhaled bronchodilator. Keep head at 45 deg ree, seen by psychiatrist also followed by oncology. Continue gastric prophylaxis, deep venous throm bosis prophylaxis. Aspiration precaution. Thank you and we will follow with you. Fabiola Mauricio MD cc: [id number] TT: 07/29/2016 21:26:46 Confirmation # [id number] Dictation # [id number] ln
[2016-07-30] MEDS: Arformoterol 15 mcg/2 ml Inh Sol IH SCH ×2 (07:15→21:00)
[2016-07-30] MEDS: Budesonide 0.5 mg/2 ml Inhal Susp UD IH SCH ×2 (07:15→21:00)
[2016-07-30] MEDS: Megestrol Acetate 40 mg/ml Cup PO SCH (09:00)
[2016-07-30] MEDS: Non Formulary Medication (Budesonide/Formoterol Fumarate [Symbicort 160-4.5 Mcg Inhaler] 1 IH SCH (09:05)
[2016-07-30] MEDS: Enoxaparin 30 mg Syringe SC SCH ×2 (09:05→09:11)
--- NOTE | 2016-07-30 18:10 | PN ---
DATE: 07/30/2016 REFERRING PHYSICIAN: Dr. Rossi. SUBJECTIVE: He is lying in the bed, sleepy, arousable. No significant cough or shortness of breath. Still has some abdominal discomfort. No nausea, no dysuria. No leg pain or leg swelling. OBJECTIVE: GENERAL: No acute distress. VITAL SIGNS: Temp is 98, heart rate is 79, respiratory rate is 20, blood pressure 95/61, pulse ox 98 % on nasal cannula. HEENT: Moist mucous membranes. No ulcer or oral thrush noted. NECK: Supple. No JVD. LUNGS: Have a prolonged expiratory phase. Has some rhonchi. HEART: S1, S2. ABDOMEN: Mild epigastric area tenderness. EXTREMITIES: There is no edema. NEUROLOGIC: He is sleepy, arousable, follows simple command. MEDICATIONS: He is on albuterol-Atrovent nebulizer q. 8 hours p.r.n., Ambien 5 mg at bedtime p.r.n., Brovana 15 mcg inhaled twice a day, Dilaudid 0.25 mg q. 6 hours p.r.n., Duragesic patch q. 72 hours , Ecotrin 81 mg daily, Lipitor 10 mg daily, metoprolol tartrate 25 mg twice a day, Lovenox 30 mg supriya y, Megace 400 mg daily, Norvasc 10 mg daily, Pepcid 40 mg at bedtime, Pulmicort inhaler twice a day, Pravachol 25 mg at bedtime, Zestril 20 mg daily. LABORATORY DATA: Reviewed. No new lab is available since yesterday. Also, a CT of the abdomen and pelvis on admission, which was unremarkable for abdominal finding except a progressive left adrenal m etastatic disease. There is also widely disseminated osseous metastatic disease affecting thoracolu mbar vertebral bodies, pathological fracture at L2. There are also multiple pathological rib fractur es. Also, lytic lesion affecting pelvis, including iliac component. IMPRESSION AND PLAN: Metastatic lung cancer involving rib, vertebra, ilium, chronic obstructive lung disease, hypertension. Pulmonary point of view, he is doing well. Continue bronchodilator. Keep h ead 45 degrees. He is to manage his pain. He is DNR. Continue supportive care. Thank you, and will follow with you. Fabiola Mauricio MD cc: [id number] TT: 07/30/2016 18:09:40 Confirmation # [id number] Dictation # [id number] dn
--- NOTE | 2016-07-30 20:16 | PN ---
DATE: 07/30/2016 SUBJECTIVE: The patient was seen and examined on the bedside. Nurse was feeding breakfast. Looks comfortable. He looks a little bit confused. No nausea, vomiting, or diarrhea. No dysuria. No swelling of the extremities. No shortness of breath. No fever, no chills, no dyspnea. PHYSICAL EXAMINATION: VITAL SIGNS: Temperature 98, heart rate 79, respiratory rate 20, blood pressure 95/61, and pulse oximetry 98% on nasal cannula. HEENT: Head normocephalic, atraumatic. Eyes, PERRLA. Extraocular muscles intact. Conjunctivae are clear. Nose patent. NECK: Supple. No carotid bruit, JVD or thyromegaly. LUNGS: Have prolonged expiratory phase. Has some rhonchi. HEART: S1, S2 positive. ABDOMEN: Mild epigastric area tenderness. EXTREMITIES: No edema, no cyanosis. NEUROLOGIC: The patient is awake, alert, moving all 4 extremities, but getting episodes of confusion. MEDICATIONS: Albuterol, Ambien, Brovana, Dilaudid, Duragesic patch, Ecotrin, Lipitor, metoprolol, Lovenox, Megace, Norvasc, Pepcid, Pulmicort, Prevacid, Zestril. LABORATORY DATA: We do not have labs today, but I reviewed old labs. ASSESSMENT AND PLAN: The patient is a 70-year-old male with metastatic lung cancer involving the ribs, vertebrae, ilium, adrenal gland, chronic obstructive lung disease, hypertension. The patient is now DNR and DNI. Length of time discussion done with the patient's family and nurse. CAT scan of the abdomen and pelvis showed progressive left adrenal metastatic disease and widely disseminated osseous metastatic disease affecting the thoracolumbar vertebral bodies, pathological fracture at L2, multiple pathologic rib fractures, also lytic lesions affecting pelvic including iliac components, so patient is getting Duragesic patch for pain management. Seen by Dr. Mauricio, seen by Dr. Chris Rodriguez. The patient has actually small cell carcinoma of the lung, status post chemotherapy and radiation therapy, getting sometime episodes of altered mental status, history of heavy smoking, hypertension, visually impaired , glaucoma, macular degeneration and deconditioning. this could be a component of paraneoplastic disease, but doing further workup, and acute management and acute intervention might be very prudent and feel like we should keep him comfortable. That will be a family decision. I had discussion done with patient's daughter, Ebonie, phone number [phone]. She knows that her father is terminal, making him palliative care with hospice. Hospice team is working on that. As soon as paperwork is done, we will transfer the patient to [facility] for comfort care. Ariela Rossi MD cc: [id number] TT: 07/30/2016 20:15:45 Confirmation # [id number] Dictation # [id number] berny DOMINGUEZ
--- NOTE | 2016-07-31 03:51 | CP.PCM.PN ---
Subjective - Date & Time of Evaluation Date of Evaluation: 07/31/16 Time of Evaluation: 03:48 - Subjective Subjective: Patient was seen at bedside. Has been talking on phone,trying to call family members, is suspicious, hallucinating,wants to get out of bed. Agreed to swallow a pill to calm him down if I stayed there until nurse brings him his medication. I ordered xanax 0.25 mg po stat. Medical record was reviewed. This 70 year old white male was admitted with sob, altered mental status. He has PMH of lung cancer with mets, COPD, HTN,asthma, smoker, visually impaired, depression, glaucoma , fall history. Objective - Vital Signs/Intake and Output Vital Signs (last 24 hours): Temp Pulse Resp BP Pulse Ox 98.9 F 80 20 94/57 L 92 L 07/30/16 17:32 07/30/16 21:25 07/30/16 17:32 07/30/16 21:25 07/30/16 21:25 - Medications Medications: Current Medications Albuterol Sulfate (Albuterol 0.083% Inhal Yoon (2.5 Mg/3 Ml) Ud) 2.5 mg IH TIDRESP PRN PRN Reason: Shortness of Breath Amlodipine Besylate (Norvasc) 10 mg PO DAILY [facility] Last Admin: 07/30/16 09:01 Dose: 10 mg Arformoterol Tartrate (Brovana) 15 mcg IH [id number] [facility] Last Admin: 07/30/16 21:00 Dose: Not Given Aspirin (Ecotrin) 81 mg PO DAILY [facility] Last Admin: 07/30/16 09:05 Dose: 81 mg Atorvastatin Calcium (Lipitor) 10 mg PO DIN [facility] Last Admin: 07/30/16 17:39 Dose: 10 mg Budesonide (Pulmicort Respules) 0.5 mg IH [id number] [facility] Last Admin: 07/30/16 21:00 Dose: Not Given Enoxaparin Sodium (Lovenox) 30 mg SC DAILY [facility] PRN Reason: Protocol Last Admin: 07/30/16 09:11 Dose: Not Given Famotidine (Pepcid) 40 mg PO HS [facility] Last Admin: 07/30/16 21:11 Dose: 40 mg Fentanyl (Duragesic) 1 patch TD Q72H [facility] Last Admin: 07/29/16 13:29 Dose: 1 patch Hydromorphone HCl (Dilaudid) 0.25 mg IVP Q6H PRN PRN Reason: Pain, moderate (4-7) Last Admin: 07/28/16 16:52 Dose: 0.25 mg Lisinopril (Zestril) 20 mg PO DAILY [facility] Last Admin: 07/30/16 09:00 Dose: 20 mg Megestrol Acetate (Megace) 400 mg PO DAILY [facility] Last Admin: 07/30/16 09:00 Dose: 400 mg Metoprolol Tartrate (Lopressor) 25 mg PO BID [facility] Last Admin: 07/30/16 17:21 Dose: Not Given Non-Formulary Medication (Budesonide/Formoterol Fumarate [Symbicort 160-4.5 Mcg Inhaler]) 1 aer IH BID [facility] Last Admin: 07/30/16 09:05 Dose: Not Given Quetiapine Fumarate (Seroquel) 25 mg PO HS [facility] PRN Reason: Protocol Last Admin: 07/30/16 21:11 Dose: 25 mg Zolpidem Tartrate (Ambien) 5 mg PO HS PRN; Protocol PRN Reason: Sleep - Labs Labs: 07/29/16 13:08 07/29/16 13:08 PT 11.8 Seconds (9.9-11.8) 07/27/16 16:50 INR 1.09 (0.93-1.08) H 07/27/16 16:50 APTT 28.7 Seconds (23.7-30.8) 07/27/16 16:50 - Constitutional Appears: Well, No Acute Distress - Head Exam Head Exam: ATRAUMATIC, NORMAL INSPECTION, NORMOCEPHALIC - Eye Exam Additional comments: Visually impaired. - ENT Exam ENT Exam: Normal External Ear Exam - Neck Exam Neck Exam: Normal Inspection - Respiratory Exam Respiratory Exam: NORMAL BREATHING PATTERN - Cardiovascular Exam Cardiovascular Exam: absent: JVD - GI/Abdominal Exam GI & Abdominal Exam: absent: Distended - Rectal Exam Rectal Exam: Deferred - Extremities Exam Extremities Exam: Normal Inspection - Back Exam Back Exam: NORMAL INSPECTION - Neurological Exam Neurological Exam: Altered - Psychiatric Exam Psychiatric exam: Anxious - Skin Skin Exam: Normal Color Assessment and Plan - Assessment and Plan (Free Text) Assessment: A/P:Anxious. Altered mental status. Asthma/COPD. HTN. Xanax 0.25 mg PO STAT.
[2016-07-31] MEDS: Arformoterol 15 mcg/2 ml Inh Sol IH SCH ×2 (09:02→19:33)
[2016-07-31] MEDS: Budesonide 0.5 mg/2 ml Inhal Susp UD IH SCH ×2 (09:02→19:33)
[2016-07-31] MEDS: Enoxaparin 30 mg Syringe SC SCH ×2 (10:54→11:13)
[2016-07-31] MEDS: Megestrol Acetate 40 mg/ml Cup PO SCH (10:55)
[2016-07-31] MEDS ORDERED: Lidocaine 5% Patch TD STA (12:17)
--- NOTE | 2016-07-31 14:06 | CP.PCM.PN ---
Subjective - Date & Time of Evaluation Date of Evaluation: 07/30/16 Time of Evaluation: 14:00 - Subjective Subjective: Patient denies any acute pain and feels comfortable. Oriented to self but at time not to place or time. Objective - Vital Signs/Intake and Output Vital Signs (last 24 hours): Temp Pulse Resp BP Pulse Ox 98 F 98 H 20 110/70 95 07/31/16 09:35 07/31/16 11:01 07/31/16 09:35 07/31/16 11:01 07/31/16 09:35 Intake and Output: 07/31/16 07/31/16 06:59 18:59 Intake Total 120 Output Total 100 Balance 20 - Medications Medications: Current Medications Albuterol Sulfate (Albuterol 0.083% Inhal Yoon (2.5 Mg/3 Ml) Ud) 2.5 mg IH TIDRESP PRN PRN Reason: Shortness of Breath Amlodipine Besylate (Norvasc) 10 mg PO DAILY [facility] Last Admin: 07/31/16 10:55 Dose: 10 mg Arformoterol Tartrate (Brovana) 15 mcg IH [id number] [facility] Last Admin: 07/31/16 09:02 Dose: 15 mcg Aspirin (Ecotrin) 81 mg PO DAILY [facility] Last Admin: 07/31/16 10:55 Dose: 81 mg Atorvastatin Calcium (Lipitor) 10 mg PO DIN [facility] Last Admin: 07/30/16 17:39 Dose: 10 mg Budesonide (Pulmicort Respules) 0.5 mg IH [id number] [facility] Last Admin: 07/31/16 09:02 Dose: 0.5 mg Enoxaparin Sodium (Lovenox) 30 mg SC DAILY [facility] PRN Reason: Protocol Last Admin: 07/31/16 11:13 Dose: Not Given Famotidine (Pepcid) 40 mg PO HS [facility] Last Admin: 07/30/16 21:11 Dose: 40 mg Fentanyl (Duragesic) 1 patch TD Q72H [facility] Last Admin: 07/29/16 13:29 Dose: 1 patch Hydromorphone HCl (Dilaudid) 0.25 mg IVP Q6H PRN PRN Reason: Pain, moderate (4-7) Last Admin: 07/28/16 16:52 Dose: 0.25 mg Lidocaine (Lidoderm) 1 ea TD DAILY [facility] Lisinopril (Zestril) 20 mg PO DAILY [facility] Last Admin: 07/31/16 11:01 Dose: Not Given Megestrol Acetate (Megace) 400 mg PO DAILY [facility] Last Admin: 07/31/16 10:55 Dose: 400 mg Metoprolol Tartrate (Lopressor) 25 mg PO BID [facility] Last Admin: 07/31/16 10:53 Dose: 25 mg Non-Formulary Medication (Budesonide/Formoterol Fumarate [Symbicort 160-4.5 Mcg Inhaler]) 1 aer IH BID [facility] Last Admin: 07/30/16 09:05 Dose: Not Given Quetiapine Fumarate (Seroquel) 25 mg PO HS [facility] PRN Reason: Protocol Last Admin: 07/30/16 21:11 Dose: 25 mg Zolpidem Tartrate (Ambien) 5 mg PO HS PRN; Protocol PRN Reason: Sleep - Labs Labs: 07/29/16 13:08 07/29/16 13:08 PT 11.8 Seconds (9.9-11.8) 07/27/16 16:50 INR 1.09 (0.93-1.08) H 07/27/16 16:50 APTT 28.7 Seconds (23.7-30.8) 07/27/16 16:50 - Constitutional Appears: Non-toxic, Cachectic - Head Exam Head Exam: ATRAUMATIC - Eye Exam Eye Exam: absent: Scleral icterus Assessment and Plan - Assessment and Plan (Free Text) Assessment: Mr. Wolfe katelin 70 y/o man with extensive stage small cell lung cancer with AMS in the setting of possible paraneoplastic setting (limbic enceophalopathy?). At present patient is comfortable and patient's family will be pursuing consideration of hospice and all measures at this point should be for palliative purposes. Mati Marquez MD Oncology Serice p: [phone]
--- NOTE | 2016-07-31 17:05 | PN ---
DATE: 07/31/2016 REFERRING PHYSICIAN: Dr. Rossi SUBJECTIVE: He is lying in the bed. Family friend at bedside feeding him lunch. Night was unremarka ble. No shortness of breath. No chest pain, no nausea and vomiting, diarrhea. Has some shoulder di scomfort. No leg pain or leg swelling. OBJECTIVE: GENERAL: No acute distress. VITAL SIGNS: Temp is 98, heart rate is 98, respiratory rate is 20, blood pressure 110/70, pulse ox 9 5% with 2 liters nasal cannula. HEENT: Moist mucous membranes. . NECK: Supple. No JVD. LUNGS: Fair airflow. HEART: S1, S2. ABDOMEN: Soft, nontender. No organomegaly. EXTREMITIES: There is no edema. NEUROLOGIC: Awake, alert, follows simple commands. MEDICATIONS: He is on albuterol/Atrovent nebulizer q. 8 hours, Ambien 5 mg at bedtime p.r.n., Brovan a 15 mcg inhaled twice a day, Dilaudid 0.25 mg IV q. 6 hours p.r.n., Duragesic patch q. 72 hours, Eco merly 81 mg daily, Lidoderm patch daily, Lipitor 10 mg daily, metoprolol tartrate 25 mg twice a day, L ovenox 30 mg subQ daily, Megace 400 mg daily, Norvasc 10 mg daily, Pepcid 40 mg at bedtime, Pulmicort inhaled twice a day, Seroquel 25 mg at bedtime and Zestril 20 mg daily. LABORATORY DATA: Shows hemoglobin 15.5, hematocrit 40.7, WBC 2.7, platelet is 172. Sodium 136, pota ssium 4.0. IMPRESSION AND PLAN: Metastatic lung cancer involving the ribs, vertebra, ileum. Chronic obstructive lung disease, hypertension. Pulmonary point of view, seems okay. Continue supplemental oxygen, bro nchodilators. Pain management. Gastric prophylaxis. Deep venous thrombosis prophylaxis. I spoke t o nursing staff to get him out of bed to chair with fall precautions. Thank you and we will follow with you. Fabiola Mauricio MD cc: [id number] TT: 07/31/2016 17:04:41 Confirmation # [id number] Dictation # [id number]
[2016-07-31] MEDS: HYDROmorphone 0.5 mg/0.5 ml ISec IVP PRN (17:08)
--- NOTE | 2016-07-31 18:13 | PN ---
DATE: 07/31/2016 SUBJECTIVE: The patient was seen and examined on the bedside. Ex-, daughter and granddaughter was on the bedside. The patient is complaining about neck pain, and he has not had a bowel movement from 3 days. Otherwise, no fever, no chills. No hematuria or hematochezia. No swelling of the leg. No headache, no dizziness. PHYSICAL EXAMINATION: VITAL SIGNS: Temperature 98, pulse 98, blood pressure 110/70, respiratory rate 20. HEAD: Normocephalic, atraumatic. EYES: PERRLA. Extraocular muscles intact. Conjunctivae pink. Eyelids unremarkable. Nose patent. NECK: Supple. No carotid bruit, JVD or thyromegaly. CHEST: Bilaterally symmetrical. HEART: S1, S2 positive. LUNGS: Clear to auscultation. ABDOMEN: Soft. Bowel sounds present. No organomegaly. EXTREMITIES: No edema, no cyanosis. NEUROLOGIC: The patient is awake, moving all 4 extremities, alert, but sometimes getting episodes of confusion. MEDICATIONS: Albuterol, Ambien, Duragesic patch, Dilaudid p.r.n., aspirin, Lidoderm patch, Lipitor, Lopressor, Amlodipine, Pepcid, Pulmicort, Seroquel, Zestril. LABORATORY DATA: We do not have recent labs today, but I reviewed old labs. ASSESSMENT AND PLAN: The patient is a 70-year-old male with metastatic lung cancer involving the ribs, vertebrae and ileum, chronic obstructive lung disease , hypertension, having episodes of confusion, seen by Dr. Valero because the patient was hallucinating and according to the family Dr. Valero gave him Xanax. Has neck pain; maybe he slept in the wrong position. If insurance will not cover , then a lidocaine patch. Constipation. The patient is on pain medications, but was refusing medications for a bowel movement, a stool softener. Length of time of discussion done with the patient and the family, educated him and agreed to take Colace 200 mg p.o. daily p.r.n., 1 dose today. The patient is DNR and DNI. Working with the hospice team. Meanwhile, continue present treatment. GI and DVT prophylaxis. Will followup. Ariela Rossi MD cc: [id number] TT: 07/31/2016 18:12:50 Confirmation # [id number] Dictation # [id number] dn MTDD
[2016-07-31] MEDS ORDERED: Sodium Chloride 0.9% 100 ML IV SCH (19:45)
[2016-07-31] MEDS ORDERED: Sodium Chloride 0.9% 1,000 ML IV SCH (20:00)
[2016-08-01] MEDS: Budesonide 0.5 mg/2 ml Inhal Susp UD IH SCH ×2 (07:51→20:21)
[2016-08-01] MEDS: Arformoterol 15 mcg/2 ml Inh Sol IH SCH ×2 (07:51→20:21)
--- NOTE | 2016-08-01 09:18 | CP.PCM.CON ---
History of Present Illness - History of Present Illness History of Present Illness: Progress note. 08/01. Lethargic, confused. Appetite fair. Complains of back and hip pain when moved/ repositioned. Past Patient History - Infectious Disease Hx of Infectious Diseases: None - Past Social History Smoking Status: Former Smoker - CARDIAC Hx Hypertension: Yes - PULMONARY Hx Chronic Obstructive Pulmonary Disease (COPD): Yes - NEUROLOGICAL Hx Neurological Disorder: No - HEENT Hx Blind: Yes - HEMATOLOGICAL/ONCOLOGICAL Hx Blood Disorders: Yes Hx Cancer: Yes (lung ON RADIATION THERAPHY. NEWLY DX JANUARY 2016) - INTEGUMENTARY Hx Dermatological Problems: Yes Other/Comment: skin discolorations b/l arms, skin tear right arm and small scratch left arm, multiple skin discolorations ble - MUSCULOSKELETAL/RHEUMATOLOGICAL Hx Falls: Yes - GENITOURINARY/GYNECOLOGICAL Hx Reproductive Disorders: No - PSYCHIATRIC Hx Psychophysiologic Disorder: Yes Hx Emotional Abuse: No Hx Physical Abuse: No Hx Substance Use: No - SURGICAL HISTORY Other/Comment: left hip replaced in 1995 and 2010 - ANESTHESIA Hx Anesthesia: Yes Hx Anesthesia Reactions: No Hx Malignant Hyperthermia: No Meds Allergies/Adverse Reactions: Allergies Allergy/AdvReac Type Severity Reaction Status Date / Time No Known Allergies Allergy Verified 07/27/16 15:48 - Medications Medications: Current Medications Albuterol Sulfate (Albuterol 0.083% Inhal Yoon (2.5 Mg/3 Ml) Ud) 2.5 mg IH TIDRESP PRN PRN Reason: Shortness of Breath Amlodipine Besylate (Norvasc) 10 mg PO DAILY [facility] Last Admin: 07/31/16 10:55 Dose: 10 mg Arformoterol Tartrate (Brovana) 15 mcg IH [id number] [facility] Last Admin: 08/01/16 07:51 Dose: 15 mcg Aspirin (Ecotrin) 81 mg PO DAILY [facility] Last Admin: 07/31/16 10:55 Dose: 81 mg Atorvastatin Calcium (Lipitor) 10 mg PO DIN [facility] Last Admin: 07/31/16 17:08 Dose: 10 mg Budesonide (Pulmicort Respules) 0.5 mg IH [id number] [facility] Last Admin: 08/01/16 07:51 Dose: 0.5 mg Famotidine (Pepcid) 40 mg PO HS [facility] Last Admin: 07/31/16 21:27 Dose: 40 mg Fentanyl (Duragesic) 1 patch TD Q72H [facility] Last Admin: 07/29/16 13:29 Dose: 1 patch Hydromorphone HCl (Dilaudid) 0.25 mg IVP Q6H PRN PRN Reason: Pain, moderate (4-7) Last Admin: 07/31/16 17:08 Dose: 0.25 mg Lidocaine (Lidoderm) 1 ea TD DAILY [facility] Megestrol Acetate (Megace) 400 mg PO DAILY [facility] Last Admin: 07/31/16 10:55 Dose: 400 mg Metoprolol Tartrate (Lopressor) 25 mg PO BID [facility] Quetiapine Fumarate (Seroquel) 25 mg PO HS [facility] PRN Reason: Protocol Last Admin: 07/31/16 21:34 Dose: 25 mg Zolpidem Tartrate (Ambien) 5 mg PO HS PRN; Protocol PRN Reason: Sleep Last Admin: 07/31/16 21:27 Dose: 5 mg Physical Exam - Constitutional Appears: Cachectic, Chronically Ill - Head Exam Head Exam: NORMAL INSPECTION - Eye Exam Eye Exam: Normal appearance, PERRL - ENT Exam ENT Exam: Normal Oropharynx - Neck Exam Neck exam: Positive for: Normal Inspection - Respiratory Exam Respiratory Exam: Decreased Breath Sounds, NORMAL BREATHING PATTERN - Cardiovascular Exam Cardiovascular Exam: REGULAR RHYTHM, +S1, +S2 - GI/Abdominal Exam GI & Abdominal Exam: Normal Bowel Sounds, Soft - Extremities Exam Extremities exam: Positive for: normal capillary refill, normal inspection - Back Exam Back exam: vertebral tenderness - Neurological Exam Neurological exam: Altered - Skin Skin Exam: Dry, Pallor Results - Vital Signs Recent Vital Signs: Last Vital Signs Temp 98.1 F 08/01/16 07:45 Pulse 92 H 08/01/16 07:45 Resp 20 08/01/16 07:45 BP 108/74 08/01/16 07:45 Pulse Ox 93 L 08/01/16 07:45 - Labs Result Diagrams: 07/29/16 13:08 07/29/16 13:08 Assessment & Plan - Assessment and Plan (Free Text) Assessment: 70 year old male with admitted with AMS, intractable pain. 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 I spoke with patients family about hospice service s this past Monday. Family was going to discuss amongst themselves and come to a decision over the weekend. Family was originally thinking of sending the patient back to [facility] on palliative services. Today, I spoke with patients daughter, Ebonie who is his POA. She was thinking she would take patient to her home with hospice services. Hospice home services explained in detail. Questions answered. She is agreeable with meeting with director hospice operations today. Patient has not had BM since admission. Rectal exam, no impaction Time spent in discussion with daughter regarding hospice services and end of life care, 25 minutes Plan: Hospice referral Pain Management: Will increase Fentanyl transdermal patch to 25 mcg tomorrow, Constipation: Relistor 10 mg now
--- NOTE | 2016-08-01 09:29 | PN ---
DATE: 07/31/2016 The patient is in room 360, bed 1. PROBLEM: This is a 70-year-old male who was admitted with progressive metastatic small cell carcinom a of the lung along the ____ body. ____ was admitted to the hospital in a confused state. A CAT scan of the head with and without contrast failed to show any metastatic disease ____ confusion was probab ly paraneoplastic. Our discussion with the family attend to the fact that they would keep him comfor table without really any active therapy including palliative radiation. The patient did get radiatio n to the primary tumor of the lung which appears to be smaller with an active chemotherapy for very m any reasons including poor performance status, but also the patient has had several admissions to the rehab and it was impossible for him to come back for ongoing treatment to the office and this, plus his overall deterioration and physical status precluded us from giving him any treatments. SUBJECTIVE: The patient is seen lying in bed, family is at the bedside. He did not have any signifi cant issues over the night. Denies any history of shortness of breath, chest pain, nausea, vomiting, diarrhea, has some shoulder discomfort. PHYSICAL EXAMINATION: VITAL SIGNS: Stable. T-max is 98.4, heart rate is 98, respirations 20, blood pressure 110/70, pulse ox is 95% with 2 liters of nasal cannula. HEENT: Head is normocephalic, atraumatic. Conjunctiva pale, sclerae are anicteric. Pupils are equal ly reactive to light and accommodation. The patient has impaired vision. NECK: Supple. There is no adenopathy. No jugular venous distention noted. LUNGS: Reveal decreased breath sounds in the bases, left greater than the right. HEART: Reveals S1 and S2 to be normal. No gallop is heard. ABDOMEN: Soft, nontender. EXTREMITIES: Reveals no cyanosis, clubbing or edema. NEUROLOGIC: The patient is awake and alert and follows simple commands. MEDICATIONS: Reviewed. He is on albuterol, Atrovent nebulizer q. 8 hours, Ambien 5 at this time, Br ovana 15 mcg inhaled twice daily. He is on Dilaudid 0.25 mg for pain, which he complains of the righ t hip, IV q. 6 hours p.r.n. He is on Duragesic patch q. 72 hours, Ecotrin 81 mg daily, Lidoderm patch , Lipitor 10 mg daily, ____ 25 mg b.i.d., Lovenox 40 mg subQ daily, Megace 400 mg daily, Norvasc 10 m g daily, Pepcid 40 at bedtime, Pulmicort inhaled twice a day, Seroquel 25 mg at bedtime, Zestril 20 m g daily. LABORATORY DATA: Reveals a white count of 2.7, hemoglobin of 15.5, hematocrit 40.7, platelet count o f 172. Sodium is 136, potassium is 4. We will monitor his blood count to see if the ____ drips down ____ with the given Neupogen at this point in time. ASSESSMENT NOTES AND PLAN: We will continue supportive care, gastric and DVT prophylaxis, comfort me asures without actively intervening in the treatment of his underlying malignancy. Will speak to the family again and ____ by the palliative care ____ has already been talking to them or even seeing if he is a candidate for admission to hospice. I will speak to the PMD, Dr. Rossi as well. Gracie Marquez MD cc: [id number] TT: 07/31/2016 22:36:36 Confirmation # [id number] Dictation # [id number] fuentes
--- NOTE | 2016-08-01 09:47 | CP.PCM.PN ---
Subjective - Date & Time of Evaluation Date of Evaluation: 08/01/16 Time of Evaluation: 09:00 - Subjective Subjective: Lethargic, confused, appetite fair. Complains of back and hip pain when moved / repositioned. Objective - Vital Signs/Intake and Output Vital Signs (last 24 hours): Temp Pulse Resp BP Pulse Ox 98.1 F 92 H 20 108/74 93 L 08/01/16 07:45 08/01/16 07:45 08/01/16 07:45 08/01/16 07:45 08/01/16 07:45 Intake and Output: 08/01/16 08/01/16 06:59 18:59 Intake Total 320 Output Total 450 Balance -130 - Medications Medications: Current Medications Albuterol Sulfate (Albuterol 0.083% Inhal Yoon (2.5 Mg/3 Ml) Ud) 2.5 mg IH TIDRESP PRN PRN Reason: Shortness of Breath Amlodipine Besylate (Norvasc) 10 mg PO DAILY [facility] Last Admin: 07/31/16 10:55 Dose: 10 mg Arformoterol Tartrate (Brovana) 15 mcg IH [id number] [facility] Last Admin: 08/01/16 07:51 Dose: 15 mcg Aspirin (Ecotrin) 81 mg PO DAILY [facility] Last Admin: 07/31/16 10:55 Dose: 81 mg Budesonide (Pulmicort Respules) 0.5 mg IH [id number] [facility] Last Admin: 08/01/16 07:51 Dose: 0.5 mg Famotidine (Pepcid) 40 mg PO HS [facility] Last Admin: 07/31/16 21:27 Dose: 40 mg Fentanyl (Duragesic) 1 patch TD Q72H [facility] Hydromorphone HCl (Dilaudid) 0.25 mg IVP Q6H PRN PRN Reason: Pain, moderate (4-7) Last Admin: 07/31/16 17:08 Dose: 0.25 mg Lidocaine (Lidoderm) 1 ea TD DAILY [facility] Megestrol Acetate (Megace) 400 mg PO DAILY [facility] Last Admin: 07/31/16 10:55 Dose: 400 mg Metoprolol Tartrate (Lopressor) 25 mg PO BID [facility] Quetiapine Fumarate (Seroquel) 25 mg PO [facility] PRN Reason: Protocol Last Admin: 07/31/16 21:34 Dose: 25 mg Zolpidem Tartrate (Ambien) 5 mg PO HS PRN; Protocol PRN Reason: Sleep Last Admin: 07/31/16 21:27 Dose: 5 mg - Labs Labs: 07/29/16 13:08 07/29/16 13:08 PT 11.8 Seconds (9.9-11.8) 07/27/16 16:50 INR 1.09 (0.93-1.08) H 07/27/16 16:50 APTT 28.7 Seconds (23.7-30.8) 07/27/16 16:50 - Constitutional Appears: Cachectic, Chronically Ill - Head Exam Head Exam: NORMAL INSPECTION - Eye Exam Eye Exam: Normal appearance, PERRL - ENT Exam ENT Exam: Normal Oropharynx - Respiratory Exam Respiratory Exam: Decreased Breath Sounds, NORMAL BREATHING PATTERN - Cardiovascular Exam Cardiovascular Exam: REGULAR RHYTHM, +S1, +S2 - GI/Abdominal Exam GI & Abdominal Exam: Soft, Normal Bowel Sounds Additional comments: no tenderness or guarding - Extremities Exam Extremities Exam: Normal Inspection - Back Exam Back Exam: vertebral tenderness - Neurological Exam Neurological Exam: Altered - Skin Skin Exam: Dry, Pallor Assessment and Plan - Assessment and Plan (Free Text) Assessment: 70 year old male with admitted with AMS, intractable pain. 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 I spoke with patients family about hospice service this past Monday. Family was going to discuss amongst themselves and come to a decision over the weekend. Family was originally thinking of sending the patient back to [facility] on palliative services. Today, I spoke with patients daughter, Ebonie who is his POA. She was thinking she would take patient to her home with hospice care. Hospice home services explained in detail. Questions answered. She is agreeable with meeting with [employer] today. Patient has not had BM since admission. Rectal exam, no impaction. No nausea or vomiting. Time spent in discussion with daughter regarding hospice services and end of life care, 25 minutes Plan: Hospice referral Pain Management: Will increase Fentanyl transdermal patch to 25 mcg tomorrow, Constipation: Relistor 10 mg now
[2016-08-01] MEDS ORDERED: Lidocaine 5% Patch TD SCH (10:00)
[2016-08-01] MEDS: Megestrol Acetate 40 mg/ml Cup PO SCH (10:25)
[2016-08-01] MEDS: Albuterol 0.083% Inhal Sol (2.5 mg/3 mL) UD IH PRN (14:03)
--- NOTE | 2016-08-01 19:01 | PN ---
DATE: 08/01/2016 SUBJECTIVE: The patient is seen and examined on the bedside. Nurse was feeding him. Lethargic, con fused. Appetite is fair. Complaining of back pain, hip pain, especially when he removed and reposit ioned because of multiple fractures of the ribs, hip and back. No fever, no chills. No nausea, vomi ting, or diarrhea. No hematuria or hematochezia. PHYSICAL EXAMINATION: VITAL SIGNS: Temperature 98.1, pulse 92, respiratory rate 20, blood pressure 108/74, respiratory rat e 18. HEENT: Head is normocephalic, atraumatic. Eyes: PERRLA. Extraocular muscles intact. Conjunctivae clear. Eyelids unremarkable. Nose patent. Mucous membranes moist. NECK: Supple. No carotid bruit, JVD or thyromegaly. CHEST: Bilaterally symmetrical. HEART: S1, S2 positive. LUNGS: Clear to auscultation. ABDOMEN: Soft. Bowel sounds present. No organomegaly. EXTREMITIES: No edema, no cyanosis. NEUROLOGIC: The patient is confused. Moving all 4 extremities. MEDICATIONS: Norvasc, Brovana, Ecotrin, Pulmicort, Pepcid, Duragesic patch, Lidoderm, Megace, Lopres sor, Ambien. LABORATORY DATA: We do not have recent labs today, but I reviewed old labs. 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 The patient got chemotherapy and radiotherapy. Now family decided about hospice. Family was maira g to discuss amongst themselves and come to the decision over the weekend. Family was originally brandi ovalle also sending the patient back to [facility] on palliative services, but today Annamaria lawrence spoke to the patient's daughter, Ebonie. She is the POA. She was thinking she would take patient to her home with hospice care. Annamaria Banuelos explained to Ebonie about home hospice services in detail . All questions answered. She is agreeable with meeting the social service liaison today. The patient did not have bowel movement. Rectal examination was done, no impaction. No nausea or vomiting. Now pl an is comfort care, pain management. The patient was getting Duragesic patch 12.5, increase to 25; a nd lidocaine patch given. For constipation, Relistor 10 mg given. Will follow up. Ariela Rossi MD cc: [id number] TT: 08/01/2016 19:01:04 Confirmation # [id number] Dictation # [id number] mn
[2016-08-01] MEDS: Oxycodone/Acetaminophen 5/325 mg Tab PO PRN (19:35)
--- NOTE | 2016-08-01 19:54 | PN ---
DATE: 08/01/2016 REFERRING PHYSICIAN: Dr. Rossi. SUBJECTIVE: He is lying in the bed, being fed by nursing staff. Night was unremarkable. Feels bett er today. No neck pain or shoulder pain. No nausea, no vomiting, diarrhea. No leg pain or leg swel ling. Wants to go home. OBJECTIVE: GENERAL: No acute distress. VITAL SIGNS: Temp is 98, heart rate is 85, respiratory rate is 20, blood pressure 101/62, pulse ox 9 3% on nasal cannula. HEENT: Moist mucous membrane. No ulcer or oral thrush noted. NECK: Supple. No JVD. LUNGS: Have fair airflow with a few rhonchi. HEART: S1, S2. ABDOMEN: Soft, nontender. No organomegaly. EXTREMITIES: No edema. NEUROLOGIC: Awake, alert, follows simple commands. MEDICATIONS: He is on albuterol-Atrovent nebulizer q. 8 hours p.r.n., Ambien 5 mg at bedtime p.r.n., Brovana 15 mcg inhaled twice a day, fentanyl patch q. 72 hours, Ecotrin 81 mg daily, metoprolol tart rate 25 mg twice a day, Megace 400 mg daily, MiraLax 17 grams daily, Norvasc 10 mg daily, Pepcid 40 m g daily, Percocet 5/325 one tab q. 8 hours p.r.n., Pulmicort inhaled twice a day, Seroquel 25 mg at b edtime. LABORATORY DATA: Reviewed. No new lab is available. IMPRESSION AND PLAN: Metastatic lung cancer involving the ribs, the vertebrae, ilium; chronic obstru ctive lung disease, hypertension, malnutrition, legally blind. From pulmonary point of view, doing o abdi. Continue p.o. and inhaled bronchodilator. Keep head elevated at 45 degrees. Pain management. Gastric prophylaxis, deep venous thrombosis prophylaxis. Aspiration precaution. He is DNR and DNI. Continue therapy. Palliative consult has been called. Thank you, and will follow with you. Fabiola Mauricio MD cc: [id number] TT: 08/01/2016 19:53:28 Confirmation # [id number] Dictation # [id number] mn
--- NOTE | 2016-08-01 22:47 | PN ---
DATE: 08/01/2016 The patient is in room 360, bed 1. REASON FOR CONSULTATION: A patient Dr. Rossi who has a diagnosis of metastatic extensive small cell lung carcinoma, was admitted ____ with progressive mental confusion, failure to thrive. HISTORY OF PRESENT ILLNESS: The patient has been in the hospital since 07/27/2016. Upon admission, sara orourke had CAT scans of the head with and without contrast to account for the confusion; there were no brain mets seen and patient was thought to have confusion probably related to the underlying maligna ncy based on a paraneoplastic phenomenon. The patient, on the x-rays, definitely primary disease in the left lung is controlled, but he has extensive metastasis as demonstrated on the scans. In view o f the patient's poor physical and mental state, he was never able to get: 1. Concurrent chemoradiatio n and 2. Whenever we tried to assess him for chemotherapy the patient was not in a position to recei ve it because he had a pubic fracture and then he was in the shelter where he was just failing t o thrive. SUBJECTIVE: The patient is lying in bed, being fed by the nursing staff, feels better today. Denies any neck pain or shoulder pain. No nausea or vomiting, no leg pain. The patient wants to go home. PHYSICAL EXAMINATION: GENERAL: The patient is examined in bed. VITAL SIGNS: Reveal T-max of 98.4, heart rate is 85, respirations 20, blood pressure 101/62, pulse o x is 92% on nasal cannula. HEENT: Head is normocephalic, atraumatic. Temporal muscle wasting is noted. Examination of the gama pharynx reveals moist mucous membranes without any ulcerations or thrush. NECK: Supple. No jugular venous distention is noted. LUNGS: Reveals fair airflow with scattered wheezes with decreased breath sounds on the left side pos teriorly. HEART: Reveals S1 and S2 to be normal. ABDOMEN: Soft, nontender. No rebound, rigidity or guarding is noted. Liver is not enlarged. EXTREMITIES: Reveals no cyanosis, clubbing or edema. NEUROLOGIC: The patient is awake, alert and follows simple commands. MEDICATIONS: He is on albuterol, Atrovent nebulizer q. 8 hours p.r.n., Ambien 5 mg at bedtime, Brova na 15 mcg twice a day, fentanyl patch 25 mcg q. 72 hours, Ecotrin 81 mg daily, metoprolol tartrate 25 mg b.i.d., Megace 400 mg daily, MiraLax 17 grams daily, Norvasc 10 mg daily, Pepcid 40 daily, Percoc et 5/325 one tablet q. 8 hours, Pulmicort inhaled twice a day, Seroquel 25 at bedtime. ASSESSMENT NOTES AND PLAN: The patient has extensive small cell lung carcinoma with mets to the ribs ____ in the background history of chronic obstructive lung disease, hypertension, malnutrition and l egally blind. The patient has been seen by the palliative service. We are trying to set up for pall iative care either at home or in a shelter or rehab facility. In the meantime, we will continue gastric and deep venous thrombosis prophylaxis, aspiration precautions. The patient is a DNR/DNI. I had spoken to Jacklyn Banuelos, our aboriginal education worker coordinator, and she has been working with the family as w moshe. Gracie Marquez MD cc: [id number] TT: 08/01/2016 22:46:43 Confirmation # [id number] Dictation # [id number] jn
[2016-08-02] MEDS: Arformoterol 15 mcg/2 ml Inh Sol IH SCH ×2 (08:00→19:33)
[2016-08-02] MEDS: Budesonide 0.5 mg/2 ml Inhal Susp UD IH SCH ×2 (08:00→19:33)
[2016-08-02] MEDS: Oxycodone/Acetaminophen 5/325 mg Tab PO PRN (08:44)
[2016-08-02] MEDS: POLYETHYLENE GLYCOL 3350 17 GM/Dose PACKET PO SCH (09:01)
[2016-08-02] MEDS: Megestrol Acetate 40 mg/ml Cup PO SCH (09:01)
[2016-08-02] MEDS ORDERED: HYDROmorphone 0.5 mg/0.5 ml ISec IVP PRN (09:27)
--- NOTE | 2016-08-02 09:55 | CP.PCM.PN ---
Subjective - Date & Time of Evaluation Date of Evaluation: 08/02/16 Time of Evaluation: 10:00 - Subjective Subjective: Awake, complaining of generalized pain. Objective - Vital Signs/Intake and Output Vital Signs (last 24 hours): Temp Pulse Resp BP Pulse Ox 97.4 F L 102 H 20 112/80 96 08/01/16 16:00 08/02/16 09:01 08/01/16 16:00 08/02/16 09:01 08/01/16 16:00 Intake and Output: 08/02/16 08/02/16 06:59 18:59 Intake Total 360 240 Output Total 200 Balance 160 240 - Medications Medications: Current Medications Albuterol Sulfate (Albuterol 0.083% Inhal Yoon (2.5 Mg/3 Ml) Ud) 2.5 mg IH TIDRESP PRN PRN Reason: Shortness of Breath Last Admin: 08/01/16 14:03 Dose: 2.5 mg Amlodipine Besylate (Norvasc) 10 mg PO DAILY [facility] Last Admin: 08/02/16 09:01 Dose: 10 mg Arformoterol Tartrate (Brovana) 15 mcg [facility] [id number] [facility] Last Admin: 08/02/16 08:00 Dose: 15 mcg Aspirin (Ecotrin) 81 mg PO DAILY [facility] Last Admin: 08/02/16 09:00 Dose: 81 mg Budesonide (Pulmicort Respules) 0.5 mg [facility] [id number] [facility] Last Admin: 08/02/16 08:00 Dose: 0.5 mg Famotidine (Pepcid) 40 mg PO HS [facility] Last Admin: 08/01/16 21:00 Dose: 40 mg Fentanyl (Duragesic) 1 patch TD Q72H [facility] Last Admin: 08/01/16 11:39 Dose: 1 patch Hydromorphone HCl (Dilaudid) 0.5 mg IVP Q8H PRN PRN Reason: Pain, moderate (4-7) Megestrol Acetate (Megace) 400 mg PO DAILY [facility] Last Admin: 08/02/16 09:01 Dose: 400 mg Metoprolol Tartrate (Lopressor) 25 mg PO BID [facility] Last Admin: 08/02/16 09:00 Dose: 25 mg Polyethylene Glycol (Miralax) 17 gm PO DAILY [facility] Last Admin: 08/02/16 09:01 Dose: 17 gm Quetiapine Fumarate (Seroquel) 25 mg PO HS EFREN PRN Reason: Protocol Last Admin: 08/01/16 21:00 Dose: 25 mg Zolpidem Tartrate (Ambien) 5 mg PO HS PRN; Protocol PRN Reason: Sleep Last Admin: 07/31/16 21:27 Dose: 5 mg - Labs Labs: 07/29/16 13:08 07/29/16 13:08 PT 11.8 Seconds (9.9-11.8) 07/27/16 16:50 INR 1.09 (0.93-1.08) H 07/27/16 16:50 APTT 28.7 Seconds (23.7-30.8) 07/27/16 16:50 - Constitutional Appears: Chronically Ill - Eye Exam Eye Exam: Normal appearance, PERRL - ENT Exam ENT Exam: Mucous Membranes Moist - Respiratory Exam Respiratory Exam: Decreased Breath Sounds, NORMAL BREATHING PATTERN - Cardiovascular Exam Cardiovascular Exam: +S1, +S2 - GI/Abdominal Exam GI & Abdominal Exam: Soft, Normal Bowel Sounds - Extremities Exam Extremities Exam: Normal Capillary Refill, Normal Inspection - Neurological Exam Neurological Exam: Alert - Skin Skin Exam: Dry, Warm Assessment and Plan - Assessment and Plan (Free Text) Assessment: 70 year old male with metastatic lung cancer, intractable pain, failure to thrive, altered mental status. Patient is complaining of generalized body pain, most noticeable in back and torso when he is repositioned. He had a large softy BM yesterday after receiving Relistor. Family at bedside. They are meeting with [facility] clinical rn liaison this morning. Daughter Ebonie wants to take patient to her home with hospice services. Psychosocial support given. Plan: Pain Management: Fentanyl 25mcg transdermal patch. Discontinue Percocet 5/325 mg. Dilaudid 0.5mg IV as needed for breakthrough pain. Constipation: Miralax 17 gm daily.
--- NOTE | 2016-08-02 18:39 | PN ---
DATE: 08/02/2016 REFERRING PHYSICIAN: Dr. Rossi. SUBJECTIVE: The patient is lying in the bed, head at 45 degrees. Has some low back pain. No headac he, no rhinitis, no nausea, no vomiting, no dysuria. No leg pain or leg swelling. OBJECTIVE: GENERAL: In no acute distress. VITAL SIGNS: Temp is 98, heart rate is 72, respiratory rate is 20, blood pressure 100/57, pulse ox 9 6% on 2 liters nasal cannula. HEENT: Small oral cavity. Crowded airway. NECK: Supple. No JVD. LUNGS: Has a fair airflow with a few rhonchi. HEART: S1, S2. ABDOMEN: Soft, nontender. No organomegaly. EXTREMITIES: There is no edema. NEUROLOGIC: Awake, alert, follows simple commands. MEDICATIONS: He is on albuterol-Atrovent nebulizer q.8 hours p.r.n., Ambien 5 mg at bedtime p.r.n., Brovana 15 mcg inhaled twice a day, Dilaudid 0.5 mg q.8 hours p.r.n., Duragesic patch q.72 hours, Eco merly 81 mg daily, metoprolol tartrate 25 mg twice a day, Megace 400 mg daily, MiraLax 17 grams p.o. d aily, Norvasc 10 mg daily, Pepcid 40 mg at bedtime, Pulmicort inhaled twice a day, Seroquel 25 mg at bedtime. LABORATORY DATA: Reviewed and noted. No new lab is available. IMPRESSION AND PLAN: Metastatic small cell lung cancer to the bones, especially involving rib, verte bra and ileum, chronic obstructive lung disease, hypertension, malnutrition, legally blind. I spoke to nursing staff. Continue pain management. Keep head elevated at 45 degrees. Bronchodilator. Sup plemental oxygen. Gastric prophylaxis. DVT prophylaxis. Appreciated palliative consult and followu p. Thank you and will follow with you. Fabiola Mauricio MD cc: [id number] TT: 08/02/2016 18:39:23 Confirmation # [id number] Dictation # [id number] dn
[2016-08-03] MEDS: Albuterol 0.083% Inhal Sol (2.5 mg/3 mL) UD IH PRN ×2 (02:00→07:50)
--- NOTE | 2016-08-03 02:47 | PN ---
DATE: 08/02/2016 SUBJECTIVE: The patient seen and examined on the bedside. No change in the status and looks comfortable. No nausea, vomiting, or diarrhea. No hematuria or hematochezia. No headache, no dizziness. Is not a big complainer. Looks like sometimes hallucinating. Still having some pain in the back and ribs PHYSICAL EXAMINATION: VITAL SIGNS: Temperature 98, heart rate 72, respiratory rate 20, blood pressure 100/57, pulse oximetry 96% on 2 liters nasal cannula. HEENT: Head normocephalic, atraumatic. Eyes, PERRLA. Extraocular muscles intact. Conjunctivae pink. Eyelids unremarkable. Nose patent. Mucous membranes moist. NECK: Supple. No carotid bruit, JVD or thyromegaly. CHEST: Bilaterally symmetrical. HEART: S1, S2 positive. LUNGS: Clear to auscultation. ABDOMEN: Soft. Bowel sounds present. No organomegaly. EXTREMITIES: No edema, no cyanosis. NEUROLOGIC: The patient is awake, alert, follows simple commands. MEDICATIONS: Albuterol, Ambien, Brovana, Dilaudid, Duragesic patch, Ecotrin, metoprolol, Megace, MiraLax, Norvasc, Pepcid, Pulmicort, Seroquel. LABORATORY DATA: No new labs today. ASSESSMENT AND PLAN: The patient is a 70-year-old male with metastatic small cell lung carcinoma to the bone, especially involving the ribs , history of heavy smoking, chronic obstructive lung disease, hypertension, malnutrition, legally blind, status post chemotherapy and radiotherapy, status multiple time times suspecting pneumonia. Hospice team is on the case. Trying to do arrangements for home hospice. We are giving pain management, supplemental oxygen and gastric prophylaxis. I appreciated Dr. Mauricio's input and palliative management's input. all notes, and especially Dr. Mauricio's notes. The patient has constipation getting MiraLax, failure to thrive, altered mental status, sometimes hallucinating. He got bowel movement after getting Relistor. The family is understandable. 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 Daughter, Ebonie , wants to take the patient to her home with hospice services. Psychosocial support given. He is getting fentanyl patch 25 mcg transdermal. Discontinue Percocet and Dilaudid. We will follow up. Ariela Rossi MD cc: [id number] TT: 08/03/2016 01:56:27 Confirmation # [id number] Dictation # [id number] jn 08/03/2016 01:46:53 ALBERTO
[2016-08-03] MEDS: Arformoterol 15 mcg/2 ml Inh Sol IH SCH (07:50)
[2016-08-03] MEDS: Budesonide 0.5 mg/2 ml Inhal Susp UD IH SCH (07:50)
[2016-08-03] MEDS: Megestrol Acetate 40 mg/ml Cup PO SCH (09:28)
[2016-08-03] MEDS: POLYETHYLENE GLYCOL 3350 17 GM/Dose PACKET PO SCH (09:28)
[2016-08-03] MEDS: HYDROmorphone 0.5 mg/0.5 ml ISec IVP PRN ×2 (10:03→16:12)
--- NOTE | 2016-08-03 12:19 | PN ---
DATE: 08/03/2016 REFERRING PHYSICIAN: Dr. Rossi. SUBJECTIVE: He is lying in the bed, sleepy, arousable. No significant pain, no nausea, no vomiting, diarrhea. No leg pain or leg swelling. OBJECTIVE: GENERAL: No acute distress. VITAL SIGNS: Temp is 98, heart rate is 110, respiratory rate is 20, blood pressure 109/68, pulse ox 93% on nasal cannula. HEENT: Moist mucous membrane. NECK: Supple, no JVD. LUNGS: Have a fair airflow with few rhonchi. HEART: S1, S2. ABDOMEN: Soft, nontender. No organomegaly. EXTREMITIES: No edema. NEUROLOGIC: Sleepy, arousable, follows simple command. MEDICATIONS: Reviewed. He is on albuterol-Atrovent nebulizer q. 6 hours, Ambien 5 mg at bedtime p.r .n., Brovana 15 mcg inhaled twice a day, Dilaudid 0.5 mg q. 6 hours p.r.n., fentanyl 1 patch q. 72 ho urs, Ecotrin 81 mg daily, metoprolol tartrate 25 mg twice a day, Megace 40 mg daily, MiraLax 17 grams daily, Norvasc 10 mg daily, Pepcid 40 mg daily, Pulmicort inhaled twice a day, Seroquel 25 mg at bed time. LABORATORY DATA: Reviewed. No new lab is available. IMPRESSION AND PLAN: Metastatic small cell lung cancer with metastases to the bones, especially invo lving ribs, vertebrae, and ilium, chronic obstructive lung disease, hypertension, malnutrition, legal ly blind. The patient is DNR and DNI. Case discussed with patient's son at bedside. All their ques tions answered. I also spoke to Dr. Rossi. Also case discussed with palliative care. The patient will be discharged home hospice will be followed by home hospice physician. Continue morphine, suppl emental oxygen, bronchodilators for comfort care. We will follow with you. Fabiola Mauricio MD cc: [id number] TT: 08/03/2016 12:19:08 Confirmation # [id number] Dictation # [id number] tn
[2016-08-03 17:28] VITALS: BP 139/91; PULSE 80; RESP 20; TEMP 98.1; O2SAT 95
--- NOTE | 2016-08-04 11:31 | DS ---
Discharged to home with daughterEbonie, on hospice. CHIEF COMPLAINT: Altered mental status, coughing, shortness of breath. HISTORY OF PRESENT ILLNESS: The patient 70-year-old male who came from [facility], history of COPD, visually impaired; lung cancer with metastasis, status post chemotherapy and radiotherapy, found to have altered mental status, shortness of breath. Chest x-ray was done at [facility]. According to that, the patient has new infiltrates. Then, we transferred patient to [facility]. The patient was admitted. CAT scan of the chest and pelvis done. CAT scan of the head done. Consult was called with Dr. Valerie Koo for depression, Dr. Mauricio (hydrator). Dr. Cheyenne Murphy was patient's radiation oncologist. Was seen by Dr. Marquez. The patient was given treatment but not improving. Has multiple fractures including rib, back and hip. Has metastatic disease. Annamaria Banuelos was involved and talked to the patient's daughter Ebonie, the patient's other daughters and son. Make patient comfort care and discharge home with daughter, Ebonie. Important supplies were provided. Prescription of medications was written by Annamaria Banuelos. PAST MEDICAL HISTORY: Hypertension, COPD, visually impaired; lung cancer, received 33 radiation sessions; asthma, history of heavy smoking, history of glaucoma, history of fall and fracture of his right pubic ramus, depression, multiple rib fractures. FAMILY HISTORY: Father and mother noncontributory. HABITS: The patient has history of heavy smoking; quit after getting cancer. Alcohol: Two beers per week. Substance abuse: No. ALLERGIES: The patient is not allergic with any medications. HOME MEDICATIONS: Reviewed by me. REVIEW OF SYSTEMS: The patient was seen and examined on the bedside. Discussion done with Dr. Mauricio and Annamaria Banuelos. The patient is awake, getting episodes of altered mental status. Son was on the bedside also. No fever, no chills, no nausea, vomiting, or diarrhea. No hematuria or hematochezia. No swelling of the legs. PHYSICAL EXAMINATION: VITAL SIGNS: Temperature 98, heart rate 110, respiratory rate 20, blood pressure 109/68, and pulse oximetry 93% on nasal cannula. HEENT: Head normocephalic, atraumatic. Eyes: PERRLA. Extraocular muscles intact. Conjunctivae are clear. Eyelids unremarkable. Nose patent. NECK: Supple. No carotid bruit. No JVD or thyromegaly. CHEST: Bilaterally symmetrical. HEART: S1, S2 positive. LUNGS: Clear to auscultation. ABDOMEN: Soft, nontender. No organomegaly. EXTREMITIES: No edema, no cyanosis. NEUROLOGIC: The patient is awake, alert, moving all 4 extremities, but getting episodes of altered mental status. MEDICATIONS: Albuterol, Ambien, Brovana, Dilaudid, fentanyl, Ecotrin, metoprolol, Megace, MiraLax, Norvasc, Pepcid, Pulmicort, Seroquel. LABORATORY DATA: We do not have recent labs today, but I reviewed old labs. ASSESSMENT AND PLAN: The patient is a 70-year-old male with metastatic small cell lung cancer with metastasis to the bone, especially involving the ribs, vertebrae, and ilium; chronic obstructive lung disease, hypertension, malnutrition, legally blind. The patient has had 33 sessions of chemotherapy and radiation therapy. He is a DNR and DNI made by the family. Length of time discussion done with the patient's son, and yesterday with the patient's daughter Ebonie, Annamaria Banuelos and Dr. Mauricio. All questions answered. Make patient hospice. Sent home to daughter's home (Ebonie) with palliative care. All supplies given. Social support provided. The patient will get comfort care at home with palliative nurses. Ariela Rossi MD cc: [id number] TT: 08/04/2016 10:32:12 mn ALBERTO
== END 2016-08-03 17:53 | disposition hospice, home (50) | DRG 181 ==
LOC: ED 15:33 → ERH 19:02 → 3RNO 23:07
PROVIDERS: ADMIT Internal Medicine; ATTEND Internal Medicine
PROC: 3E0F7GC Introduction of Other Therapeutic Substance into Respiratory Tract, Via Natural or Artificial Opening (ICD-10-PCS; principal; 2016-07-28)
DX: C34.90 Malignant neoplasm of unspecified part of unspecified bronchus or lung (principal); C79.51 Secondary malignant neoplasm of bone; C79.72 Secondary malignant neoplasm of left adrenal gland; G13.1 Other systemic atrophy primarily affecting central nervous system in neoplastic disease; R64 Cachexia; E46 Unspecified protein-calorie malnutrition; M84.58XA Pathological fracture in neoplastic disease, other specified site, initial encounter for fracture; Z68.1 Body mass index [BMI] 19.9 or less, adult; R44.3 Hallucinations, unspecified; J44.9 Chronic obstructive pulmonary disease, unspecified; D64.9 Anemia, unspecified; I10 Essential (primary) hypertension; F32.9 Major depressive disorder, single episode, unspecified; R41.0 Disorientation, unspecified; H35.30 Unspecified macular degeneration; F40.240 Claustrophobia; R80.9 Proteinuria, unspecified; R73.9 Hyperglycemia, unspecified; H54.8 Legal blindness, as defined in USA; H40.9 Unspecified glaucoma; J45.909 Unspecified asthma, uncomplicated; K59.00 Constipation, unspecified; R62.7 Adult failure to thrive; Z66 Do not resuscitate; R29.6 Repeated falls; Z91.81 History of falling; Z92.3 Personal history of irradiation; Z92.21 Personal history of antineoplastic chemotherapy; Z96.642 Presence of left artificial hip joint; Z87.891 Personal history of nicotine dependence